=== PATIENT | male | born 1945 | race Caucasian/White ===

== ENCOUNTER → 2019-09-26 11:04 | Outpatient (BNVA) | payer OTHER, SELFPAY | PROVIDERS: Family Provider Internal Medicine; Referring Provider Internal Medicine; Visit Provider Specialist | DX: M19.012 Primary osteoarthritis, left shoulder (principal) | CPT/HCPCS: 73030 ==

== ENCOUNTER 2020-03-21 05:34 | Observation (INO) | payer OTHER, SELFPAY ==
[2020-03-21] VITALS (13 sets, daily range): BP systolic 117–147; BP diastolic 58–74; PULSE 51–78; RESP 13–22; TEMP 35.8–37; O2SAT 95–98; BMI 30.1
--- NOTE | 2020-03-21 05:42 | XRR_ITS ---
PROCEDURE INFORMATION: Exam: XR Chest, 1 View Exam date and time: 03/21/2020 6:04 AM Age: 74 years old Clinical indication: Chest pain; Type not specified TECHNIQUE: Imaging protocol: XR of the chest Views: 1 view. COMPARISON: CR Chest 1 [place] [id number] 09/17/2018 5:16 PM FINDINGS: Lungs: No lung consolidation or pulmonary edema. Pleural space: No pleural effusion or pneumothorax. Heart/Mediastinum: The cardiac silhouette is not enlarged. The mediastinal contours are normal. Bones/joints: There are multilevel bridging osteophytes in the spine. XR/XR chest 1V portable [id number] IMPRESSION: No acute abnormality.
--- NOTE | 2020-03-21 05:43 | ECG_ITS ---
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 Measurements Intervals [place] Rate: 56 P: 60 WV: 176 QRS: 32 QRSD: 89 T: 76 QT: 433 QTc: 420 Interpretive Statements SINUS BRADYCARDIA Compared to ECG 09/17/2018 17:01:59 Sinus rhythm no longer present Electronically Signed On 03-21-2020 13:55:23 CDT by Chapis Lopez M.D. [id number]
[2020-03-21] MEDS: nitroglycerin 0.4 mg sublingual Tablet SUBLINGUAL ×3 (05:47→06:10)
--- NOTE | 2020-03-21 05:47 | ED_ITS ---
Documented by User: Amanda Schultz 03/21/20 05:52 HPI - Chest Pain General: Chief Complaint: Chest Pain Stated Complaint: chest pains Time Seen by Provider: 03/21/20 05:41 Source: patient and family Mode of arrival: ambulatory Limitations: no limitations History of Present Illness: HPI narrative: Mr. Hung is a very nice 74-year-old male comes in complaining of chest pain. States his pain started about 10:00 last night. He describes it as a hurt that is in the center of his chest and radiates down his left arm. He has associated shortness of breath. He had similar symptoms approximately 1 month ago and at that time he had diaphoresis. Patient states that he took nitroglycerin at home which helped his symptoms but did not completely resolve them. She still complains of left arm discomfort here. He is not report any nausea or vomiting or syncope or near syncope. Patient states he otherwise has no complaints but he still having left arm discomfort at this time. He does have a history of coronary artery disease and has had a heart attack in the past. Patient states he also took a full- strength aspirin at home prior to coming in. Associated symptoms: Reports dyspnea; Deny abdominal pain, diaphoresis, fever(s), nausea, palpitations, syncope or vomiting Review of Systems Const: Denies: fever(s), chills, body aches, fatigue, malaise or diaphoresis Eyes: Denies: change in vision, blurry vision, photophobia, eye discomfort, eye discharge, eye redness or yellow eyes ENMT: Denies: throat pain, odynophagia, hoarseness, swelling of lips/tongue, ear or mastoid pain, ear discharge, change in hearing or nasal discharge Card: Reports: chest pain; Denies: palpitations, irregular heart rhythm, edema, lightheadedness, syncope, pre-syncope, dyspnea on exertion or orthopnea Resp: Reports: dyspnea; Denies: productive cough, non-productive cough, wheezing, hemoptysis or chest c ongestion GI: Denies: abdominal pain, nausea, vomiting, hematemesis, coffee ground emesis, heartburn, diarrhea, constipation, GI cramping, hematochezia or melena : Denies: flank pain, dysuria, urinary frequency, urinary urgency or hematuria Musc: Denies: neck pain, back pain, extremity pain, extremity swelling, joint pain, joint swelling, joint redness, joint warmth or joint stiffness Skin/Breast: Denies: rash, pruritus, erythema, skin pain or skin tenderness Neuro: Denies: headache(s), numbness in extremities, weakness in extremities, sensory changes, lack of coordination, difficulty walking, dizziness, vertigo, confusion, Slurred speech present or seizure-like activity Remi/Lymph: Denies: easy bruising, easy bleeding, petechiae, purpura or enlarged lymph nodes All/Imm: Denies: urticaria, throat swelling, tongue swelling, facial swelling or acute wheezing PFSH ED PFSH: Medical History (Updated 03/24/20 @ 17:21 by Grzegorz Lee DO) Atherosclerotic heart disease of [place] coronary artery without angina pectoris Benign essential HTN Dyslipidemia History of coronary angiogram 2017 Hypertension Type 2 diabetes mellitus Surgical History History of back surgery History of hernia repair History of shoulder surgery Family History (Updated 03/21/20 @ 10:56 by Tamara Wilson DO) Father CAD (coronary artery disease) Mother , No history of heart disease, diabetes or stroke No problems noted. Social History (Updated 03/21/20 @ 10:56 by Tamara Wilson DO) Smoking and tobacco status: former smoker Alcohol intake: never Physical Exam Const: COMMON NORMALS: no acute distress, patient oriented x3, no limitations and alert GENERAL APPEARANCE: cooperative HENMT: COMMON NORMALS: normocephalic, atraumatic, external ears normal, EAC's normal and Normal external nose present HEAD & SCALP: normal to inspection, normocephalic and atraumatic FACE & SINUS: normal facial exam and face symmetric NOSE: Normal external nose present and Normal nares present EXTERNAL EAR: Yes external ears normal EXTERNAL AUDITORY CANAL: EAC's normal MOUTH: Normal oral and palatal mucosa present, lip normal and tongue normal Eye: COMMON NORMALS: Equal, round and reactive pupils present and conjunctivae normal GENERAL EYE: appearance normal, both eyes and all related structures ALIGNMENT: Yes alignment normal PERIORBITAL: periorbital findings normal EYELID: eyelids normal CONJUNCTIVA: Yes conjunctivae normal SCLERA: sclerae normal PUPIL: Yes Equal, round and reactive pupils present Neck/C-Spine: COMMON NORMALS: full ROM, no lymphadenopathy, supple, no meningeal signs and no JVD GENERAL: Yes normal visual inspection and Yes trachea midline Chest: COMMONS NORMALS: normal inspection of the chest and normal palpation of entire chest wall Resp: COMMON NORMALS: normal respiratory effort, No retractions, No use of accessory muscles and clear to auscultation bilaterally EFFORT & INSPECTION: Yes able to speak in complete sentences and Yes symmetric chest movement AUSCULTATION: clear to auscultation bilaterally, no crackles, no rales, no rhonchi and no wheezes Cardio: COMMON NORMALS: no JVD, regular rate, regular rhythm, S1 normal heart sound present and S2 normal heart sound present RATE: regular rate RHYTHM: regular rhythm HEART SOUNDS: S1 normal heart sound present, S2 normal heart sound present, no click, no gallops, no murmurs and no rubs GI: COMMON NORMALS: Soft to palpation and No hepatosplenomegaly present PALPATION: Yes Soft to palpation, No Tenderness to palpation present (GI), No Guarding due to palpation present (GI), No Rigid due to palpation, Yes No hepatosplenomegaly present, No Hernia present, No Palpable mass present and No Pulsatile mass present : COMMON NORMALS: Yes no CVA tenderness BLADDER/KIDNEY EXAM: Yes no CVA tenderness Back/Pelvis: COMMON NORMALS: no CVA tenderness, thoracic and lumbar spine normal to inspection, no thoracic nor lumbar tenderness and thoraco-lumbar ROM normal Extremity: COMMON NORMALS: normal to inspection, full ROM, capillary refill normal, no joint enlargement, no clubbing, cyanosis or edema and no calf tenderness Neuro: COMMON NORMALS: patient oriented x3, CN's II-XII intact bilaterally, moves all extremities, no focal motor deficits and no sensory deficits noted SENSORIUM/ORIENTATION: Yes alert MENINGEAL SIGNS: Yes no meningeal signs SPEECH: speech normal Psych: COMMON NORMALS: mental status grossly normal, Normal thought process present, cooperative, normal affect, speech normal and activity/motor behavior normal SPEECH: Yes normal speech THOUGHT PROCESS: Normal thought process present Skin: COMMON NORMALS: no rashes or lesions noted, turgor normal, no jaundice, no petechiae and no mottling GENERAL SKIN EXAM: no rashes or lesions noted and turgor normal Course Vital Signs: Vital signs: Vital Signs Temperature 98.2 F 09/24/20 15:12 Pulse Rate 66 03/22/20 15:12 Respiratory Rate 22 H 03/22/20 15:12 Blood Pressure 110/63 03/22/20 15:12 Pulse Oximetry 97 03/22/20 15:12 MDM - Chest Pain Lab Data: Labs: Lab Results 03/21/20 03/21/20 03/21/20 Range/Units 05:50 05:50 05:50 WBC 5.1 (4.0-10.0) 10^3/ uL RBC 4.73 (4.1-5.3) 10^6/u L Hgb 15.7 (11.7-16.6) g/dL Hct 45.9 (42.0-52.0) % MCV 97.0 H (80-94) fL MCH 33.2 (28.0-34.0) pg MCHC 34.2 (30.0-36.0) g/dL RDW 12.7 (12.1-15.1) % Plt Count 171 (130-400) 10^3/c mm MPV 10.4 (7.4-10.4) fL Neut % (Auto) 51.5 % Lymph % (Auto) 34.1 % [place] % (Auto) 12.0 % Eos % (Auto) 1.8 % Baso % (Auto) 0.4 % Neut # (Auto) 2.61 (1.8-7.7) 10^3/u L Lymph # (Auto) 1.7 (0.8-4.8) 10^3/u L [place] # (Auto) 0.6 (0.2-0.9) 10^3/u L Eos # (Auto) 0.1 (0.0-0.8) 10^3/u L Baso # (Auto) 0.0 (0.0-0.1) 10^3/u L Nucleated RBC % (a uto) 0 % Nucleated RBCs # 0.0 /100WBC PT 12.10 (12.1-14.9) SECO NDS INR 0.87 (0.8-1.2) Sodium 140 (136-145) mmol/L Potassium 4.3 (3.5-5.1) mmol/L Chloride 104 (98-107) mmol/L Carbon Dioxide 24 (22-29) mmol/L Anion Gap 16.3 (5-19) BUN 23 (8-23) mg/dL Creatinine 1.2 (0.7-1.2) mg/dL GFR Calculation Not Reportable Glucose 129 H (65-115) mg/dL Calculated Osmolal ity 295 (285-295) mOsm/k g Calcium 10.5 (8.5-10.5) mg/dL Magnesium 1.9 (1.7-2.3) mg/dL Total Bilirubin 0.8 (0.15-1.2) mg/dL AST 26 (0-40) U/L ALT 37 (0-41) U/L Alkaline Phosphata se 76 (40-130) IU/L Troponin T Baselin e (0-15) ng/L Total Protein 7.0 (6.6-8.7) g/dL Albumin 4.8 (3.5-5.2) g/dL Globulin 2.2 (1.3-4.6) g/dL Lipase 52 (13-60) U/L 03/21/20 Range/Units 05:50 WBC (4.0-10.0) 10^3/ uL RBC (4.1-5.3) 10^6/u L Hgb (11.7-16.6) g/dL Hct (42.0-52.0) % MCV (80-94) fL MCH (28.0-34.0) pg MCHC (30.0-36.0) g/dL RDW (12.1-15.1) % Plt Count (130-400) 10^3/c mm MPV (7.4-10.4) fL Neut % (Auto) % Lymph % (Auto) % [place] % (Auto) % Eos % (Auto) % Baso % (Auto) % Neut # (Auto) (1.8-7.7) 10^3/u L Lymph # (Auto) (0.8-4.8) 10^3/u L [place] # (Auto) (0.2-0.9) 10^3/u L Eos # (Auto) (0.0-0.8) 10^3/u L Baso # (Auto) (0.0-0.1) 10^3/u L Nucleated RBC % (a uto) % Nucleated RBCs # /100WBC PT (12.1-14.9) SECO NDS INR (0.8-1.2) Sodium (136-145) mmol/L Potassium (3.5-5.1) mmol/L Chloride (98-107) mmol/L Carbon Dioxide (22-29) mmol/L Anion Gap (5-19) BUN (8-23) mg/dL Creatinine (0.7-1.2) mg/dL GFR Calculation Glucose (65-115) mg/dL Calculated Osmolal ity (285-295) mOsm/k g Calcium (8.5-10.5) mg/dL Magnesium (1.7-2.3) mg/dL Total Bilirubin (0.15-1.2) mg/dL AST (0-40) U/L ALT (0-41) U/L Alkaline Phosphata se (40-130) IU/L Troponin T Baselin e 9 (0-15) ng/L Total Protein (6.6-8.7) g/dL Albumin (3.5-5.2) g/dL Globulin (1.3-4.6) g/dL Lipase (13-60) U/L EKG Data^: EKG 1: Attestation: I personally reviewed and interpreted this EKG as follows: EKG interpretation date: 03/21/20 EKG interpretation time: 05:44 Interpretation: Normal sinus rhythm at 56 beats a minute, nonspecific T wave change in aVL and V3, normal axis, no blocks, normal intervals, no other acute findings. Discharge Plan Discharge Patient Disposition: Admitted As Inpatient Admit Provider: Lon Tabor Clinical Impression: Chest pain, Atherosclerotic heart disease of [place] coronary artery without angina pectoris, Benign essential HTN, Dyslipidemia Condition: Stable Referrals: Naldo Jarquin MD [Physician] - 2 weeks (Please keep your appointment you already have with Dr. Jarquin at [facility] on April 05 at 3:15pm) Aziza Marsh MD [Primary Care Provider] - (You have a hospital followup with Dr. Marsh at [facility] on April 03 at 11:00am) Discharge Diet: Cardiac Discharge Activity: Increase activity as tolerated Patient Instructions: Aspirin (By mouth), Chest Pain (GEN), Chest Pain Stoplight Additional Instructions: Continue on home medications including atorvastatin, Imdur, metoprolol, nif edipine, started on aspirin 81 mg daily. Stress test performed in the hospital showed no evidence of any obstructive blood flow. Continue with close cardiology follow-up as scheduled on 04/05/[address] Jarquin Follow-up with primary care provider at the [facility] in 5 to 7 days Call your physician or present to the ED for any acute illness or concern Interventions: ED Discharge Assessment Last Done: 03/21/20 07:25 ED Charges Last Done: 03/21/20 07:25 Discharge Date/Time: 03/21/20 08:35 Sign Out Sign Out Data: Patient Sign Out occurred on 03/21/20 at 06:18. Patient's care was discussed, and care was transferred from to Grzegorz Lee DO. Coding Level of Care Code ED Market Development Trainer for Chg Fwd Exam Comprehensive Documented by User: Grzegorz Lee DO 03/24/20 17:22 HPI - Chest Pain General: Chief Complaint: Chest Pain Stated Complaint: chest pains Time Seen by Provider: 03/21/20 05:41 [facility] ED PFSH: Medical History (Updated 03/24/20 @ 17:21 by Grzegorz Lee DO) Atherosclerotic heart disease of [place] coronary artery without angina pectoris Benign essential HTN Dyslipidemia History of coronary angiogram 2017 Hypertension Type 2 diabetes mellitus Surgical History History of back surgery History of hernia repair History of shoulder surgery Family History (Updated 03/21/20 @ 10:56 by Tamara Wilson DO) Father CAD (coronary artery disease) Mother , No history of heart disease, diabetes or stroke No problems noted. Social History (Updated 03/21/20 @ 10:56 by Tamara Wilson DO) Smoking and tobacco status: former smoker Alcohol intake: never Course Vital Signs: Vital signs: Vital Signs Temperature 98.2 F 03/22/20 15:12 Pulse Rate 66 03/22/20 15:12 Respiratory Rate 22 H 03/22/20 15:12 Blood Pressure 110/63 03/22/20 15:12 Pulse Oximetry 97 03/22/20 15:12 MDM - Chest Pain MDM Narrative: Medical decision making narrative: Observation for atypical chest pain. Discussed Dr. Wilson orders have been written patient needs further evaluation given heart score and history of previous known coronary disease. Lab Data: Labs: Lab Results 03/21/20 03/21/20 03/21/20 Range/Units 05:50 05:50 05:50 WBC 5.1 (4.0-10.0) 10^3/ uL RBC 4.73 (4.1-5.3) 10^6/u L Hgb 15.7 (11.7-16.6) g/dL Hct 45.9 (42.0-52.0) % MCV 97.0 H (80-94) fL MCH 33.2 (28.0-34.0) pg MCHC 34.2 (30.0-36.0) g/dL RDW 12.7 (12.1-15.1) % Plt Count 171 (130-400) 10^3/c mm MPV 10.4 (7.4-10.4) fL Neut % (Auto) 51.5 % Lymph % (Auto) 34.1 % [place] % (Auto) 12.0 % Eos % (Auto) 1.8 % Baso % (Auto) 0.4 % Neut # (Auto) 2.61 (1.8-7.7) 10^3/u L Lymph # (Auto) 1.7 (0.8-4.8) 10^3/u L [place] # (Auto) 0.6 (0.2-0.9) 10^3/u L Eos # (Auto) 0.1 (0.0-0.8) 10^3/u L Baso # (Auto) 0.0 (0.0-0.1) 10^3/u L Nucleated RBC % (a uto) 0 % Nucleated RBCs # 0.0 /100WBC PT 12.10 (12.1-14.9) SECO NDS INR 0.87 (0.8-1.2) Sodium 140 (136-145) mmol/L Potassium 4.3 (3.5-5.1) mmol/L Chloride 104 (98-107) mmol/L Carbon Dioxide 24 (22-29) mmol/L Anion Gap 16.3 (5-19) BUN 23 (8-23) mg/dL Creatinine 1.2 (0.7-1.2) mg/dL GFR Calculation Not Reportable Glucose 129 H (65-115) mg/dL Calculated Osmolal ity 295 (285-295) mOsm/k g Calcium 10.5 (8.5-10.5) mg/dL Magnesium 1.9 (1.7-2.3) mg/dL Total Bilirubin 0.8 (0.15-1.2) mg/dL AST 26 (0-40) U/L ALT 37 (0-41) U/L Alkaline Phosphata se 76 (40-130) IU/L Troponin T Baselin e (0-15) ng/L Total Protein 7.0 (6.6-8.7) g/dL Albumin 4.8 (3.5-5.2) g/dL Globulin 2.2 (1.3-4.6) g/dL Lipase 52 (13-60) U/L 03/21/20 Range/Units 05:50 WBC (4.0-10.0) 10^3/ uL RBC (4.1-5.3) 10^6/u L Hgb (11.7-16.6) g/dL Hct (42.0-52.0) % MCV (80-94) fL MCH (28.0-34.0) pg MCHC (30.0-36.0) g/dL RDW (12.1-15.1) % Plt Count (130-400) 10^3/c mm MPV (7.4-10.4) fL Neut % (Auto) % Lymph % (Auto) % [place] % (Auto) % Eos % (Auto) % Baso % (Auto) % Neut # (Auto) (1.8-7.7) 10^3/u L Lymph # (Auto) (0.8-4.8) 10^3/u L [place] # (Auto) (0.2-0.9) 10^3/u L Eos # (Auto) (0.0-0.8) 10^3/u L Baso # (Auto) (0.0-0.1) 10^3/u L Nucleated RBC % (a uto) % Nucleated RBCs # /100WBC PT (12.1-14.9) SECO NDS INR (0.8-1.2) Sodium (136-145) mmol/L Potassium (3.5-5.1) mmol/L Chloride (98-107) mmol/L Carbon Dioxide (22-29) mmol/L Anion Gap (5-19) BUN (8-23) mg/dL Creatinine (0.7-1.2) mg/dL GFR Calculation Glucose (65-115) mg/dL Calculated Osmolal ity (285-295) mOsm/k g Calcium (8.5-10.5) mg/dL Magnesium (1.7-2.3) mg/dL Total Bilirubin (0.15-1.2) mg/dL AST (0-40) U/L ALT (0-41) U/L Alkaline Phosphata se (40-130) IU/L Troponin T Baselin e 9 (0-15) ng/L Total Protein (6.6-8.7) g/dL Albumin (3.5-5.2) g/dL Globulin (1.3-4.6) g/dL Lipase (13-60) U/L Discharge Plan Discharge Patient Disposition: Admitted As Inpatient Admit Provider: Lon Tabor Clinical Impression: Chest pain, Atherosclerotic heart disease of [place] coronary artery without angina pectoris, Benign essential HTN, Dyslipidemia Condition: Stable Referrals: Naldo Jarquin MD [Physician] - 2 weeks (Please keep your appointment you already have with Dr. Jarquin at [facility] on April 05 at 3:15pm) Aziza Marsh MD [Primary Care Provider] - (You have a hospital followup with Dr. Marsh at [facility] on April 03 at 11:00am) Discharge Diet: Cardiac Discharge Activity: Increase activity as tolerated Patient Instructions: Aspirin (By mouth), Chest Pain (GEN), Chest Pain Stoplight Additional Instructions: Continue on home medications including atorvastatin, Imdur, metoprolol, nifedipine, started on aspirin 81 mg daily. Stress test performed in the hospital showed no evidence of any obstructive blood flow. Continue with close cardiology follow-up as scheduled on 04/05/[address] Jarquin Follow-up with primary care provider at the [place] in 5 to 7 days Call your physician or present to the ED for any acute illness or concern Interventions: ED Discharge Assessment Last Done: 03/21/20 07:25 ED Charges Last Done: 03/21/20 07:25 Discharge Date/Time: 03/21/20 08:35 Sign Out Sign Out Data: Patient Sign Out occurred on 03/21/20 at 06:18. Patient's care was discussed, and care was transferred from to Grzegorz Lee DO. Coding Level of Care Code ED Market Development Trainer for [employer] Fwd Exam Comprehensive
[2020-03-21 06:07] LABS: Basophils % 0.4 %; Eosinophils # 0.1 10^3/uL (0.0-0.8); Eosinophils % 1.8 %; Hematocrit 45.9 % (42.0-52.0); Hemoglobin 15.7 g/dL (11.7-16.6); Lymphocytes # 1.7 10^3/uL (0.8-4.8); Lymphocytes % 34.1 %; Mean Corpuscular HGB Conc 34.2 g/dL (30.0-36.0); Mean Corpuscular Hemoglobin 33.2 pg (28.0-34.0); Mean Platelet Volume 10.4 fL (7.4-10.4); Monocytes # 0.6 10^3/uL (0.2-0.9); Neutrophils # 2.61 10^3/uL (1.8-7.7); Neutrophils % 51.5 %; Nucleated Red Blood Cells % 0 %; Platelet Count 171 10^3/cmm (130-400); Red Blood Count 4.73 10^6/uL (4.1-5.3); Red Cell Distribution Width 12.7 % (12.1-15.1); White Blood Count 5.1 10^3/uL (4.0-10.0)
[2020-03-21 06:14] LABS: INR 0.87 (0.8-1.2)
[2020-03-21 06:19] LABS: Alanine Aminotransferase 37 U/L (0-41); Albumin Level 4.8 g/dL (3.5-5.2); Alkaline Phosphatase 76 IU/L (40-130); Anion Gap 16.3 (5-19); Aspartate Amino Transferase 26 U/L (0-40); Blood Urea Nitrogen 23 mg/dL (8-23); Calcium 10.5 mg/dL (8.5-10.5); Carbon Dioxide 24 mmol/L (22-29); Chloride 104 mmol/L (98-107); Creatinine Clr Calc Pharmacy 63.5117; Globulin 2.2 g/dL (1.3-4.6); Glucose 129 mg/dL (65-115); Lipase 52 U/L (13-60); Magnesium 1.9 mg/dL (1.7-2.3); Osmolality Calculated 295 mOsm/kg (285-295); Potassium 4.3 mmol/L (3.5-5.1); Sodium 140 mmol/L (136-145); Total Bilirubin 0.8 mg/dL (0.15-1.2)
[2020-03-21 06:22] LABS: Troponin(5th) Baseline 9 ng/L (0-15)
[2020-03-21] MEDS: nitroglycerin 1 gm/inch oint Pkt 1 INCH TOPICAL (06:30)
[2020-03-21] MEDS: enoxaparin 100 mg/mL Syringe SUBCUT (06:52)
--- NOTE | 2020-03-21 07:43 | ECG_ITS ---
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 Measurements Intervals [place] Rate: 52 P: 56 [place]: 180 QRS: 24 QRSD: 88 T: 67 QT: 445 QTc: 417 Interpretive Statements SINUS BRADYCARDIA Compared to ECG 03/21/2020 05:44:28 No significant changes Electronically Signed On 03-21-2020 13:57:28 CDT by Chapis Lopez M.D. [id number]
[2020-03-21 09:17] LABS: Glucose Point of Care 128 mg/dL (70-110)
--- NOTE | 2020-03-21 09:46 | ECG_ITS ---
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 Interpretive Statements NAME OF STUDY: LEXISCAN SESTAMIBI STRESS TEST INDICATION: Chest Pain PROCEDURE: At the baseline, the blood pressure was 154/67 mmHg with a heart rate of 73 bpm. The electrocardiogram showed sinus rhythm with frequent isolated PVCs. Mild nonspecific ST depression in inferolateral leads. The Lexiscan was infused over a period of 20 seconds. A total of 0.4 milligrams of Lexiscan was infused. The stress phase was continued for a total of 5 minutes. Heart rate at the end of the stress phase was 101 bpm with a blood pressure 159/47 mmHg. The EKG at the peak infusion revealed sinus tachycardia at 101 bpm with isolated PACs. No significant ST-T wave changes. Sestamibi was injected 20 seconds after the Lexiscan infusion. Study was terminated due to protocol completion. Blood pressure at the end of the recovery phase was 146/64 mmHg with a heart rate of 96 beats per minute. CONCLUSION: 1. No significant EKG changes with the LexiScan infusion. 2. No LexiScan induced chest pain or cardiac arrhythmia. 3. Normal blood pressure and heart rate response. 4. Sestamibi/sestamibi perfusion scan pending; see separate report. Electronically Signed On 03-22-2020 13:12:30 CDT by Chapis Lopez M.D. [id number]
[2020-03-21 09:52] LABS: Troponin 5 2HR 8.49 ng/L (0-15)
[2020-03-21 10:07] LABS: Troponin 5 2HR Delta -0.51 ABS# (0-10)
--- NOTE | 2020-03-21 10:52 | P.HP_ITS ---
Providers/Chief Complaint Admitting Physician: Tamara Wilson DO Primary Care Provider: Mansoor Castro Chief Complaint: chest pains History of Present Illness Beka Hung is a 74 year old male Review of Systems Const: Denies: fever(s) or chills Eyes: Denies: change in vision ENMT: Denies: nasal congestion Card: Reports: chest pain; Denies: palpitations or edema Resp: Denies: dyspnea, productive cough or hemoptysis GI: Denies: abdominal pain, nausea, vomiting, diarrhea, constipation, hematochezia or melena : Denies: dysuria or hematuria Musc: Denies: extremity pain or muscle cramps Skin/Breast: Denies: rash or new lesions Neuro: Denies: headache(s) or dizziness Psych: Denies: anxiety or depression Endo: Denies: polyuria or hot flashes Remi/Lymph: Denies: easy bruising or easy bleeding Medications/Allergies Home Medications Medication Instructions Recorded Confirmed Last Taken Type atorvastatin 40 mg tablet 40 mg PO DAILY 12/04/19 03/21/20 03/20/20 History empagliflozin 25 mg tablet 25 mg PO DAILY 12/04/19 03/21/20 03/20/20 History finasteride 5 mg tablet 5 mg PO DAILY 12/04/19 03/21/20 03/20/20 History isosorbide mononitrate 120 mg 120 mg PO DAILY 12/04/19 03/21/20 03/20/20 History tablet,extended release 24 hr metformin 500 mg tablet 500 mg PO BID 12/04/19 03/21/20 03/20/20 History metoprolol tartrate 50 mg tablet 50 mg PO DAILY 12/04/19 03/21/20 03/20/20 History nifedipine 30 mg tablet,extended 30 mg PO DAILY 12/04/19 03/21/20 03/20/20 History release pantoprazole 40 mg tablet,delayed 40 mg PO DAILY 12/04/19 03/21/20 03/20/20 History release tamsulosin 0.4 mg capsule 0.4 mg PO DAILY 12/04/19 03/21/20 03/20/20 History valsartan 160 mg tablet 160 mg PO DAILY 12/04/19 03/21/20 03/20/20 History nitroglycerin [Nitrostat] 0.4 mg SUBLINGUAL Q5M PRN 03/21/20 03/21/20 Unknown History Allergies Allergy/AdvReac Type Severity Reaction Status Date / Time codeine Allergy Severe ALGY-Anaphy Verified 12/04/19 10:06 laxis ropinirole Allergy Intermediate ADR-Confusi Verified 12/04/19 10:06 on sulfamethoxazole Allergy Mild sweating Verified 12/04/19 10:06 [From Bactrim] trimethoprim [From Bactrim] Allergy Mild sweating Verified 12/04/19 10:06 morphine Allergy ADR/ALGY-Pa Verified 12/04/19 10:06 lpitations propoxyphene [From Darvon] Allergy ALGY-Difficulty Verified 12/04/19 10:06 Breathing PFSH Acute PFSH: Medical History (Updated 03/21/20 @ 10:55 by Tamara Wilson DO) Atherosclerotic heart disease of [place] coronary artery without angina pectoris Benign essential HTN Dyslipidemia History of coronary angiogram 2016 Hypertension Type 2 diabetes mellitus Surgical History History of back surgery History of hernia repair History of shoulder surgery Family History (Updated 03/21/20 @ 10:56 by Tamara Wilson DO) Father CAD (coronary artery disease) Mother , No history of heart disease, diabetes or stroke No problems noted. Social History (Updated 03/21/20 @ 10:56 by Tamara Wilson DO) Smoking and tobacco status: former smoker Alcohol intake: never Substance/Drug Use: never Supplemental PFSH Information: Previously smoked a pipe, quit smoking couple of years ago Ambulates with a cane Vitals/I&O/Wt Last Vital Signs Temp 97.8 F 03/21/20 10:47 Pulse 56 L 03/21/20 10:47 Resp 13 03/21/20 10:47 BP 125/58 03/21/20 10:47 Pulse Ox 97 03/21/20 10:47 03/20/20 03/21/20 03/21/20 22:59 06:59 14:59 Intake Total 240 / 240 Balance 240 / 240 Weight last 48 hrs Weight 95.254 kg Physical Exam Const: COMMON NORMALS: patient oriented x3 and alert GENERAL APPEARANCE: cooperative ORIENTATION/CONSCIOUSNESS: Yes awake, Yes oriented to person, Yes oriented to place and Yes oriented to time HENMT: COMMON NORMALS: normocephalic and atraumatic HEAD & SCALP: normocephalic and atraumatic Eye: COMMON NORMALS: Equal, round and reactive pupils present PUPIL: Yes Equal, round and reactive pupils present Neck/C-Spine: COMMON NORMALS: supple GENERAL: Yes normal visual inspection Resp: COMMON NORMALS: normal respiratory effort and clear to auscultation bilaterally EFFORT & INSPECTION: Yes able to speak in complete sentences AUSCULTATION: clear to auscultation bilaterally, no rhonchi and no wheezes Cardio: COMMON NORMALS: regular rate, regular rhythm and No murmurs present (Cardio) RATE: regular rate RHYTHM: regular rhythm GI: COMMON NORMALS: Soft to palpation and non-tender INSPECTION: No abdomin al distension AUSCULTATION: Yes normoactive bowel sounds PALPATION: Yes Soft to palpation : COMMON NORMALS: Yes no CVA tenderness BLADDER/KIDNEY EXAM: Yes no CVA tenderness Back/Pelvis: COMMON NORMALS: no CVA tenderness Extremity: COMMON NORMALS: no clubbing, cyanosis or edema and no calf tenderness Neuro: COMMON NORMALS: patient oriented x3, CN's II-XII intact bilaterally, moves all extremities and no focal motor deficits SENSORIUM/ORIENTATION: Yes alert, Yes oriented to person, Yes oriented to place and Yes oriented to time SPEECH: speech normal Psych: COMMON NORMALS: mental status grossly normal and cooperative Skin: COMMON NORMALS: no rashes or lesions noted GENERAL SKIN EXAM: no rashes or lesions noted Data : 03/21/20 05:50 03/21/20 05:50 A&P Assessment and plan (1) Chest pain: Observation to CSU Telemetry monitoring Serial EKG and troponin Cardiac catheter in 2017 reviewed, diagnosed with non-ST elevation CT at that time but did not require intervention Patient had stress test in 2018 which showed no evidence of any ischemia. Discussed with patient's primary milk receiver as he has an appointment with him tomorrow. We will continue with plan for stress test tomorrow and further cardiac evaluation is indicated Status: Acute (2) Benign essential HTN: Continue home Imdur, nifedipine and valsartan Status: Acute (3) Atherosclerotic heart disease of [place] coronary artery without angina pectoris: Patient presents with chest pain today Further plan as above Status: Acute Qualifiers: [place] vs. transplanted heart: [place] heart Qualified Code(s): I25.10 - Atherosclerotic heart disease of [place] coronary artery without angina pectoris (4) Dyslipidemia: Continue atorvastatin Status: Acute Additional A&P Information Diabetes: Hold metformin, placed on low-dose sliding scale insulin as needed Prior history of tobacco abuse BPH: Continue home Flomax and finasteride Hyperlipidemia: Continue atorvastatin DVT prophylaxis: Lovenox Diet: Cardiac diet, n.p.o. at midnight CODE STATUS: Full code Attestations Medical Necessity Statement*: Observation placement due to concern for chest pain, expected stay less than 2 midnights Coding Level of Care Code Acute Car Tester for Carag Fwd Diagnoses Chest pain R07.9 Benign essential HTN I10 Atherosclerotic heart disease of [place] coronary artery without angina pectoris I25.10 [place] vs. transplanted heart: [place] heart Dyslipidemia E78.5
[2020-03-21 11:18] LABS: Glucose Point of Care 130 mg/dL (70-110)
--- NOTE | 2020-03-21 11:43 | ECG_ITS ---
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 Measurements Intervals [place] Rate: 61 P: 52 [place]: 177 QRS: 46 QRSD: 86 T: 72 QT: 415 QTc: 418 Interpretive Statements SINUS RHYTHM Compared to ECG 03/21/2020 07:53:44 Sinus bradycardia no longer present Electronically Signed On 03-21-2020 13:57:09 CDT by Chapis Lopez M.D. [id number]
[2020-03-21] MEDS: atorvastatin 40 mg Tablet PO (11:51)
[2020-03-21] MEDS: tamsulosin 0.4 mg Capsule PO (11:51)
[2020-03-21] MEDS: pantoprazole DR 40 mg Tablet PO (11:52)
--- NOTE | 2020-03-21 11:52 | PC.CHAP ---
Pastoral Care Encounter/Spiritual Assessment Type of Contact [] Declined quality control engineer visit [] Patient/Family/Request visit [] Outpatient visit [] Follow-up visit [] Physician referral [] Code/Alert [X] Routine visit [] Staff referral [] Actively dying [] Patient sleeping [] Family support [] [] Out of room [] Palliative care [] [] Receiving care in room [] Pre-surgical visit [] Trauma [] Long length of stay [] ICU visit [] Other: Relational/Emotional Strength [] Patient feels connected with others/family/visitors/staff [] Distress [] Loneliness/isolation [] Abandonment Spirituality of Patient [] Person of Stacie [] Attends Restorationist of their Stacie [] Believes in Prayer [] Reads Bible or Baptism materials [] There are Spiritual issues to be addressed Picker Box Operator Interventions [] Prayer [] Active listening [] Non-anxious presence [] Spiritual/emotional support [] Crisis/trauma care [] Spiritual counseling [] Bereavement support [] Provided bereavement packet [] Provided Bible/devotional materials [] Provided toy/stuffed animal, coloring book to patient or family member [] Provided Communion [] Anointing/[place] [] Salvation [] Completed spiritual assessment [] Other: Impact on Illness or Injury [] Angry [] Fearful [] Anxious [] Often cries [] Exhaustion [] Unable to work [] Unable to attend mu-ism [] Unable to walk/stand [] Unable to read [] Unable to drive [] Unable to eat/drink [] Unable to sleep [] Unable to be with family [] Patient intubated [] Other: Summary Time spent with patient
[2020-03-21 12:23] LABS: Troponin 5 6HR 7.92 ng/L (0-15)
[2020-03-21 12:43] LABS: Troponin 5 6HR Delta -1.08 ng/L (0-12)
[2020-03-21 16:03] LABS: Glucose Point of Care 113 mg/dL (70-110)
[2020-03-21] MEDS: docusate sodium 100 mg Capsule PO (19:03)
[2020-03-21 20:47] LABS: Glucose Point of Care 112 mg/dL (70-110)
[2020-03-22] VITALS (8 sets, daily range): BP systolic 110–152; BP diastolic 56–70; PULSE 66–98; RESP 15–22; TEMP 36.6–36.8; O2SAT 94–98
--- NOTE | 2020-03-22 04:34 | PC.NURSE ---
End of shift: Patient has had a uneventful shift. Patient has been NPO for pending lexiscan. Patient has had no complaints of pain. Will continue to monitor.
[2020-03-22 05:08] LABS: Basophils % 0.3 %; Eosinophils # 0.1 10^3/uL (0.0-0.8); Eosinophils % 0.7 %; Hematocrit 45.5 % (42.0-52.0); Hemoglobin 15.2 g/dL (11.7-16.6); Lymphocytes # 1.2 10^3/uL (0.8-4.8); Lymphocytes % 17.6 %; Mean Corpuscular HGB Conc 33.4 g/dL (30.0-36.0); Mean Corpuscular Hemoglobin 32.5 pg (28.0-34.0); Mean Corpuscular Volume 97.2 fL (80-94); Mean Platelet Volume 10.7 fL (7.4-10.4); Monocytes # 0.7 10^3/uL (0.2-0.9); Monocytes % 9.7 %; Neutrophils # 4.92 10^3/uL (1.8-7.7); Neutrophils % 71.4 %; Nucleated Red Blood Cells % 0 %; Platelet Count 171 10^3/cmm (130-400); Red Blood Count 4.68 10^6/uL (4.1-5.3); Red Cell Distribution Width 12.7 % (12.1-15.1); White Blood Count 6.9 10^3/uL (4.0-10.0)
[2020-03-22 05:25] LABS: Anion Gap 13.4 (5-19); Blood Urea Nitrogen 27 mg/dL (8-23); Calcium 10.2 mg/dL (8.5-10.5); Carbon Dioxide 26 mmol/L (22-29); Chloride 105 mmol/L (98-107); Creatinine Clr Calc Pharmacy 69.2854; Glucose 129 mg/dL (65-115); Osmolality Calculated 297 mOsm/kg (285-295); Potassium 4.4 mmol/L (3.5-5.1); Sodium 140 mmol/L (136-145)
[2020-03-22 06:35] LABS: Glucose Point of Care 135 mg/dL (70-110)
--- NOTE | 2020-03-22 06:35 | PC.NURSE ---
Patient states he is claustrophobic and requesting something pre procedure. Called Dr. Tabor orders received for for Ativan 1mg IVP x1. Read back verbal order. Will continue to monitor.
[2020-03-22] MEDS: LORazepam 2 mg/mL INJ 1 mL 1 MG IVP (07:16)
[2020-03-22] MEDS: regadenoson 0.4 Mg/5 ml Syringe IVP (07:52)
[2020-03-22] MEDS: NIFEdipine ER (24 hr) 30 mg Tablet PO (09:29)
[2020-03-22] MEDS: metoprolol tartrate 50 mg Tablet PO (09:29)
[2020-03-22] MEDS: isosorbide mononitrate ER 60 mg Tablet 120 MG PO (09:29)
[2020-03-22] MEDS: tamsulosin 0.4 mg Capsule PO (09:29)
[2020-03-22] MEDS: pantoprazole DR 40 mg Tablet PO (09:31)
[2020-03-22] MEDS: finasteride 5 mg Tablet PO (09:31)
[2020-03-22] MEDS: enoxaparin 40 mg/0.4 mL Syringe SUBCUT (09:31)
[2020-03-22] MEDS: docusate sodium 100 mg Capsule PO (09:31)
--- NOTE | 2020-03-22 09:46 | NMCV_ITS ---
NM toby perf SPECT r/s* [id number] Beka Hung Age: 74 Gender: M : 1945 Exam Date: 03/22/2020 06:55 Ordering Phys: Tamara Wilson DO Technologist: MARTINEZ Muniz Exam Location: [facility] Indications: CHEST PAIN STRESS TEST Please see separate stress test report in [facility] for full findings IMAGE PROTOCOL Rest/Stress 1 Lexiscan Day Radiopharmaceutical Dose (mCi) Administration Site Administered by Rest: Tc-99m 11.0 IV MARTINEZ Barnes Sestamibi Stress:Tc-99m 33.0 IV MARTINEZ Barnes Sestamibi Rest: 22-Mar-2020 60 Discovery 630 Stress: 22-Mar-2020 30 Discovery 630 0.4mg Lexiscan. Images obtained in supine and prone position. SPECT RESULTS Technical Quality: Good Raw Data Analysis: Normal Image Corrections: No attenuation or motion correction applied Summed Stress Score: 2 Summed Rest Score: 0 Summed Difference Score: 2 PERFUSION FINDINGS Small size perfusion abnormality of mild severity of mid inferior and inferolateral [place] on supine stress images with improved tracer uptake on prone stress images. FUNCTIONAL RESULTS (calculated via Gated SPECT) Stress Image LV EF (%): 79 Stress EDV (mL):80 TID: 1.08 Stress ESV (mL):17 FUNCTIONAL FINDINGS: 1. The left ventricle is normal in size. Transient Ischemia Dilatation of 1.1. 2. The left ventricular ejection fraction is normal with a value of 79%. 3. There is hyperdynamic left ventricular wall thickening. 4. Normal end-diastolic and end-systolic volumes. IMPRESSIONS 1. Myocardial perfusion imaging is normal. Attenuation artifact noted in inferior wall. 2. Overall left ventricular systolic function is normal without regional wall motion abnormalities. 3. The left ventricular ejection fraction is normal with a value of 79%. 4. Scan indicates low risk for cardiac events. 5. When compared to previous study dated 12/28/2017, there may not have been any significant change Chapis Lopez MD (Electronically Signed) Final Date: 22 March 2020 13:20 S
--- NOTE | 2020-03-22 11:18 | PC.CHAP ---
Pastoral Care Encounter/Spiritual Assessment Type of Contact [] Declined reworker visit [] Patient/Family/Request visit [] Outpatient visit [] Follow-up visit [] Physician referral [] Code/Alert [x] Routine visit [] Staff referral [] Actively dying [] Patient sleeping [] Family support [] [] Out of room [] Palliative care [] [x] Receiving care in room [] Pre-surgical visit [] Trauma [] Long length of stay [] ICU visit [] Other: Relational/Emotional Strength [x] Patient feels connected with others/family/visitors/staff [] Distress [] Loneliness/isolation [] Abandonment Spirituality of Patient [x] Person of Stacie [] Attends Christian of their Stacie [x] Believes in Prayer [] Reads Bible or Hinduism materials [] There are Spiritual issues to be addressed Oracle Adf Developer Interventions [x] Prayer [x] Active listening [x] Non-anxious presence [x] Spiritual/emotional support [] Crisis/trauma care [x] Spiritual counseling [] Bereavement support [] Provided bereavement packet [] Provided Bible/devotional materials [] Provided toy/stuffed animal, coloring book to patient or family member [] Provided Communion [] Anointing/[place] [] Salvation [x] Completed spiritual assessment [] Other: Impact on Illness or Injury [] Angry [] Fearful [] Anxious [] Often cries [] Exhaustion [] Unable to work [] Unable to attend yazdanism [] Unable to walk/stand [] Unable to read [] Unable to drive [] Unable to eat/drink [] Unable to sleep [] Unable to be with family [] Patient intubated [] Other: Summary Dealing with heart doesn't know what needs to be done, waiting on doctors report has a good attitude Time spent with patient 10 mins
[2020-03-22 11:21] LABS: Glucose Point of Care 165 mg/dL (70-110)
--- NOTE | 2020-03-22 12:52 | PC.NURSE ---
Dr Wilson notified during rounding of patient reports he takes Lipitor and losartan at bedtime instructions to re-time medications to patient home schedule
--- NOTE | 2020-03-22 14:31 | PM.DCS ---
Discharge Providers Date of Admission: 03/21/20 06:50 Date of Discharge: March 22, 2020 Attending Provider at Admission: Lon Tabor MD Attending Provider at Discharge: Tamara Wilson DO Primary Care Provider: Mansoor Castro Diagnoses at Discharge Discharge Diagnosis (1) Chest pain: Status: Acute (2) Benign essential HTN: Status: Acute (3) Atherosclerotic heart disease of [place] coronary artery without angina pectoris: Status: Acute Qualifiers: [place] vs. transplanted heart: [place] heart Qualified Code(s): I25.10 - Atherosclerotic heart disease of [place] coronary artery without angina pectoris (4) Dyslipidemia: Status: Acute Reason for Visit Reason for Visit: chest pains Hospital Course Hospital Course: Patient seen and evaluated in the emergency department and admitted for further evaluation and treatment due to concern for chest pain. Patient was placed on telemetry and monitored for any acute EKG changes, none were noted. He had serial EKG and troponin performed, troponin did not have significant delta. Discussed with patient's primary triple valve tester, Dr. Jarquin. Patient had stress test ordered and performed, results showed low likelihood of any ischemia and showed no change compared to previous stress test. Patient remained symptom-free on date of discharge and reported that he often has night terrors and curious if his symptoms are related to anxiety. Discussed with him need for close outpatient follow-up. He verbalized understanding and agreed with plan. Physical Exam Const: COMMON NORMALS: patient oriented x3 and alert GENERAL APPEARANCE: cooperative ORIENTATION/CONSCIOUSNESS: Yes awake, Yes oriented to person, Yes oriented to place and Yes oriented to time HENMT: COMMON NORMALS: normocephalic and atraumatic HEAD & SCALP: normocephalic and atraumatic Eye: COMMON NORMALS: Equal, round and reactive pupils present PUPIL: Yes Equal, round and reactive pupils present Neck/C-Spine: COMMON NORMALS: supple GENERAL: Yes normal visual inspection Resp: COMMON NORMALS: normal respiratory effort and clear to auscultation bilaterally EFFORT & INSPECTION: Yes able to speak in complete sentences AUSCULTATION: clear to auscultation bilaterally, no rhonchi and no wheezes Cardio: COMMON NORMALS: regular rate, regular rhythm and No murmurs present (Cardio) RATE: regular rate RHYTHM: regular rhythm GI: COMMON NORMALS: Soft to palpation and non-tender INSPECTION: No abdominal distension AUSCULTATION: Yes normoactive bowel sounds PALPATION: Yes Soft to palpation Extremity: COMMON NORMALS: no clubbing, cyanosis or edema and no calf tenderness Neuro: COMMON NORMALS: patient oriented x3, CN's II-XII intact bilaterally, moves all extremities and no focal motor deficits SENSORIUM/ORIENTATION: Yes alert, Yes oriented to person, Yes oriented to place and Yes oriented to time SPEECH: speech normal Psych: COMMON NORMALS: mental status grossly normal and cooperative Skin: COMMON NORMALS: no rashes or lesions noted GENERAL SKIN EXAM: no rashes or lesions noted Discharge Data Data Completed and Pending: Completed Studies During Hospitalization Category Date Time Status Sestamibi Stress Test Request Routi ne Exams 03/21/20 09:46 Completed XR chest 1V roshni ble [id number] Stat Exams 03/21/20 05:42 Completed NM toby perf SPECT r/s* [id number] Routin e Nuc Med 03/22/20 09:46 Completed Labs from last 24 hours 03/22/20 03/22/20 03/22/20 11:04 06:22 04:00 WBC RBC Hgb Hct MCV MCH MCHC RDW Plt Count MPV Neut % (Auto) Lymph % (Auto) [place] % (Auto) Eos % (Auto) Baso % (Auto) Neut # (Auto) Lymph # (Auto) [place] # (Auto) Eos # (Auto) Baso # (Auto) Nucleated RBC % (a uto) Nucleated RBCs # Sodium 140 Potassium 4.4 Chloride 105 Carbon Dioxide 26 Anion Gap 13.4 BUN 27 H Creatinine 1.1 GFR Calculation Not Reportable Glucose 129 H POC Glucose 165 135 Calculated Osmolal ity 297 H Calcium 10.2 03/22/20 03/21/20 03/21/20 04:00 20:41 15:58 WBC 6.9 RBC 4.68 Hgb 15.2 Hct 45.5 MCV 97.2 H MCH 32.5 MCHC 33.4 RDW 12.7 Plt Count 171 MPV 10.7 H Neut % (Auto) 71.4 Lymph % (Auto) 17.6 [place] % (Auto) 9.7 Eos % (Auto) 0.7 Baso % (Auto) 0.3 Neut # (Auto) 4.92 Lymph # (Auto) 1.2 [place] # (Auto) 0.7 Eos # (Auto) 0.1 Baso # (Auto) 0.0 Nucleated RBC % (a uto) 0 Nucleated RBCs # 0.0 Sodium Potassium Chloride Carbon Dioxide Anion Gap BUN Creatinine GFR Calculation Glucose POC Glucose 112 113 Calculated Osmolal ity Calcium Vitals: Last Vital Signs Temp 98.0 F 03/22/20 11:04 Pulse 72 03/22/20 11:10 Resp 21 H 03/22/20 11:04 BP 121/60 03/22/20 11:04 Pulse Ox 94 03/22/20 11:10 Discharge Plan Discharge Patient Disposition: Home Condition: Stable Prescriptions: New aspirin [Enteric Coated Aspirin] 81 mg tablet,delayed release (DR/EC) 81 mg PO DAILY 30 Days Qty: 30 RF: 0 Continued valsartan 160 mg tablet 160 mg PO DAILY RF: 0 pantoprazole 40 mg tablet,delayed release (DR/EC) 40 mg PO DAILY RF: 0 finasteride 5 mg tablet 5 mg PO DAILY RF: 0 tamsulosin [Flomax] 0.4 mg capsule 0.4 mg PO DAILY RF: 0 metoprolol tartrate 50 mg tablet 50 mg PO DAILY RF: 0 empagliflozin 25 mg tablet 25 mg PO DAILY RF: 0 nifedipine 30 mg tablet extended release 30 mg PO DAILY RF: 0 isosorbide mononitrate 120 mg tablet extended release 24 hr 120 mg PO DAILY RF: 0 atorvastatin 40 mg tablet 40 mg PO DAILY RF: 0 metformin 500 mg tablet 500 mg PO BID RF: 0 Nitrostat 0.4 mg Tablet, Sublingual 0.4 mg SUBLINGUAL Q5M PRN (Reason: Chest Pain) RF: 0 Discharge Orders: Discharge Order (Routine); Ordered 03/22/20 Ordered By: Tamara Wilson Referrals: Mansoor Castro [Primary Care Provider] - 4-7 days Naldo Jarquin MD [Physician] - 2 weeks Discharge Diet: Cardiac Discharge Activity: Increase activity as tolerated Activity Restrictions/Additional Instructions: Continue on home medications including atorvastatin, Imdur, metoprolol, nifedipine, started on aspirin 81 mg daily. Stress test performed in the hospital showed no evidence of any obstructive blood flow. Continue with close cardiology follow-up as scheduled on 04/05/[address] Jarquin Follow-up with primary care provider at the [place] in 5 to 7 days Call your physician or present to the ED for any acute illness or concern Discharge Attestations Time Spent in Discharge Care*: greater than 30 min Specific Discharge Activities: Specific discharge activities: educating patient, discussing with pcp/other providers, discussing with home health care case manager/social workers/dc planners and documenting/other paperwork Quality Metrics Clinical Quality Measures During this hospital stay, did patient experience: None Coding Level of Care Code Acute Railroad Signal Operator for Carag Fwd Diagnoses Chest pain R07.9 Benign essential HTN I10 Atherosclerotic heart disease of [place] coronary artery without angina pectoris I25.10 [place] vs. transplanted heart: [place] heart Dyslipidemia E78.5
--- NOTE | 2020-03-22 15:25 | PC.NURSE ---
Discharge instructions given per the physician's orders. Patient verbalized understanding of information and did not have any further questions. Patient dressed self. No needs identified at this time.
--- NOTE | 2020-03-22 17:08 | PC.NURSE ---
Patient discharged home at this time; provided discharge instructions and educated patient on further chest pain patient verbalized understanding of all instructions IV dc cath intact min bleeding noted bandage applied patient assisted to private vehicle via wheel chair by staff patient alert oriented and instable condition.
== END 2020-03-22 16:00 | disposition home or self-care (01) ==
LOC: ER 06:18 → CSU 07:30
PROVIDERS: Emergency Medicine; Admitting Provider Internal Medicine; Emergency Provider Family Medicine; PCP Family Medicine; Visit Provider Family Medicine
DX: R07.9 Chest pain, unspecified (principal); I10 Essential (primary) hypertension; I25.10 Atherosclerotic heart disease of native coronary artery without angina pectoris; E78.5 Hyperlipidemia, unspecified; I25.2 Old myocardial infarction; E11.9 Type 2 diabetes mellitus without complications; Z87.891 Personal history of nicotine dependence; N40.0 Benign prostatic hyperplasia without lower urinary tract symptoms; Z79.84 Long term (current) use of oral hypoglycemic drugs
CPT/HCPCS: 12345; 36415; 36416; 71045; 78452; 80048; 80053; 82962; 83690; 83735; 84484; 85025; 85610; 93005; 93017; 96372; 96375; 99283; 99285; A9500; G0378; J1650; J1815; J2060; J2785

== ENCOUNTER → 2020-10-04 11:56 | Outpatient (BNVA) | payer OTHER, SELFPAY | PROVIDERS: PCP Family Medicine; Visit Provider Internal Medicine Cardiovascular Disease | DX: R06.02 Shortness of breath (principal); I50.33 Acute on chronic diastolic (congestive) heart failure; E78.5 Hyperlipidemia, unspecified; I25.10 Atherosclerotic heart disease of native coronary artery without angina pectoris; E11.65 Type 2 diabetes mellitus with hyperglycemia; I11.0 Hypertensive heart disease with heart failure | CPT/HCPCS: 80048; 83880 ==

== ENCOUNTER 2020-10-11 06:29 | Outpatient (RCR) | payer OTHER, SELFPAY | END 2020-10-26 23:59 | disposition home or self-care (01) | LOC: SPT 06:29 | PROVIDERS: PCP Family Medicine; Referring Provider Family Medicine; Visit Provider Family Medicine | DX: M25.562 Pain in left knee (principal) | CPT/HCPCS: 97033; 97110; 97161 ==

== ENCOUNTER 2020-10-27 06:00 | Outpatient (RCR) | payer OTHER, SELFPAY | END 2020-11-01 23:00 | disposition home or self-care (01) | LOC: SPT 06:00 | PROVIDERS: PCP Family Medicine; Referring Provider Family Medicine; Visit Provider Family Medicine | DX: M25.562 Pain in left knee (principal) | CPT/HCPCS: 97033; 97110 ==

== ENCOUNTER 2021-06-27 11:01 | Observation (INO) | payer OTHER, SELFPAY ==
[2021-06-27] VITALS (8 sets, daily range): BP systolic 110–136; BP diastolic 56–81; PULSE 67–77; RESP 15–20; TEMP 36.4; O2SAT 96–98; BMI 29.7
--- NOTE | 2021-06-27 11:19 | ECG_ITS ---
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 Measurements Intervals [place] Rate: 73 P: 66 [place]: 157 QRS: 59 QRSD: 92 T: 74 QT: 383 QTc: 424 Interpretive Statements SINUS RHYTHM WITH OCCASIONAL SUPRAVENTRICULAR PREMATURE COMPLEXES Compared to ECG 03/21/2020 12:26:07 No significant changes Electronically Signed On 06-27-2021 22:00:49 PUBLIC ADDRESS ANNOUNCER by Graeme Cheney M.D. [id number] f
--- NOTE | 2021-06-27 11:19 | XR_ITS ---
WS: [id number] Portable AP upright chest, 06/27/2021 Clinical Data: chest pain Comparison: Portable chest, 03/21/2020. Findings: No nodules, masses or effusions are seen. The heart is normal. The pulmonary vascularity is not increased. No pneumonia or pneumothorax is seen. The descending thoracic aorta shows mild tortuo sity. Monitor leads are on the chest wall. XR/XR chest 1V portable [id number] Impression: Atherosclerosis.
--- NOTE | 2021-06-27 11:28 | W.ED.CHESTPA ---
HPI - Chest Pain General: Chief Complaint: Chest Pain Stated Complaint: CHEST PAIN Time Seen by Provider: 06/27/21 11:02 History of Present Illness: HPI narrative: 75-year-old male presents emergency room complaining of chest pain. Patient was at the [facility] earlier today is complaining of chest pain he states that it began this morning while he was at rest he took several nitro at home and did have some relief of pain he says its worst it was a 9 of 3:10 nitro in addition to Nitropaste on his chest reports the pain to be 7-10 but is sitting talking comfortably and pain is worse when he takes a deep breath. He has been having this chest discomfort more frequently states is more intense today than it has been before. February 2020 he had a normal Lexiscan sestamibi stress test he does have a known history of coronary disease and had previously had stents he is still taking his clopidogrel. He is also diabetic and hypertensive. MD complaint: chest pain Pertinent past history: coronary artery disease Onset (ago): hour(s) Timing of current episode: episodic Onset: during rest Pain location: substernal Pain radiation: left arm and left shoulder Quality: aching and heaviness Relieving factors: nitroglycerin and rest Exacerbating factors: exertion Associated symptoms: Reports diaphoresis and dyspnea; Deny abdominal pain, fever(s), leg edema, nausea, palpitations, sense of impending doom, syncope or vomiting Treatment prior to arrival: nitroglycerin Review of Systems Const: Reports: diaphoresis; Denies: fever(s) ENMT: Denies: throat pain, ear or mastoid pain, nasal discharge or nasal congestion Card: Denies: palpitations or syncope Resp: Reports: dyspnea GI: Denies: abdominal pain, nausea or vomiting : Denies: flank pain, dysuria, urinary frequency or urinary urgency Skin/Breast: Denies: rash or pruritus PFSH ED PFSH: Medical History Atherosclerotic heart disease of [place] coronary artery without angina pectoris Benign essential HTN Dyslipidemia History of coronary angiogram 2017 Hypertension Primary osteoarthritis, left shoulder Type 2 diabetes mellitus Surgical History History of back surgery History of hernia repair History of shoulder surgery Family History Father CAD (coronary artery disease) Mother , No history of heart disease, diabetes or stroke Dementia Sister Cancer Denies family history of Diabetes Clotting disorder Chronic kidney disease (CKD) Suicide Anesthesia complication Bleeding disorder Lung disease Stroke Social History Smoking and tobacco status: former smoker Alcohol intake: never Physical Exam Const: GENERAL APPEARANCE: cooperative and comfortable ORIENTATION/CONSCIOUSNESS: Yes awake, Yes oriented to person, Yes oriented to place and Yes oriented to time HENMT: COMMON NORMALS: normocephalic, atraumatic and hearing grossly normal bilaterally HEAD & SCALP: normocephalic and atraumatic Neck/C-Spine: COMMON NORMALS: no JVD Resp: COMMON NORMALS: normal respiratory effort, No retractions, No use of accessory muscles and clear to auscultation bilaterally AUSCULTATION: clear to auscultation bilaterally Cardio: COMMON NORMALS: no JVD, regular rate, regular rhythm and No murmurs present (Cardio) RATE: regular rate RHYTHM: regular rhythm GI: COMMON NORMALS: Soft to palpation and No hepatosplenomegaly present AUSCULTATION: Yes normoactive bowel sounds PALPATION: Yes Soft to palpation, No Tenderness to palpation present (GI), No Guarding due to palpation present (GI) and Yes No hepatosplenomegaly present Extremity: COMMON NORMALS: normal to inspection, capillary refill normal, no clubbing, cyanosis or edema, no calf tenderness and no pedal edema Neuro: SENSORIUM/ORIENTATION: Yes oriented to person, Yes oriented to place and Yes oriented to time Skin: COMMON NORMALS: no rashes or lesions noted GENERAL SKIN EXAM: no rashes or lesions noted Course Vital Signs: Vital signs: Vital Signs Temperature 97.6 F 06/27/21 17:32 Pulse Rate 77 06/27/21 17:32 Respiratory Rate 19 H 06/27/21 17:32 Blood Pressure 136/79 06/27/21 17:32 Pulse Oximetry 96 06/27/21 15:42 MDM - Chest Pain MDM Narrative: Medical decision making narrative: Chest pain with onset at rest relieved by nitro. He is essentially pain-free at this time. Troponins unremarkable. Patient has been having this for some time he had been seeing Dr. Jarquin and was supposed to be getting set up for an angiogram given the fact that it is escalating and frequency and intensity at this point we will go ahead and put him into complete the rule out consult cardiology. Discussed with Dr. Adkins he concurs to hospitalist will look except to his services orders written. Lab Data: Labs: Lab Results 06/27/21 06/27/21 06/27/21 10:49 10:49 10:49 WBC 5.6 10^3/uL 10^3/ uL (4.0-10.0) RBC 4.87 10^6/uL 10^6 /uL (4.1-5.3) Hgb 16.1 g/dL g/dL (11.7-16.6) Hct 45.9 % % (42.0-52.0) MCV 94.3 fl H fl (80-94) MCH 33.1 pg pg (28.0-34.0) MCHC 35.1 g/dL g/dL (30.0-36.0) RDW 12.6 % % (12.1-15.1) Plt Count 178 10^3/cmm 10^3 /cmm (130-400) MPV 10.8 fL H fL (7.4-10.4) Neut % (Auto) 59.2 % % Lymph % (Auto) 28.9 % % [place] % (Auto) 10.4 % % Eos % (Auto) 0.9 % % Baso % (Auto) 0.2 % % Neut # (Auto) 3.32 10^3/uL 10^3 /uL (1.8-7.7) Lymph # (Auto) 1.6 10^3/uL 10^3/ uL (0.8-4.8) [place] # (Auto) 0.6 10^3/uL 10^3/ uL (0.2-0.9) Eos # (Auto) 0.1 10^3/uL 10^3/ uL (0.0-0.8) Baso # (Auto) 0.0 10^3/uL 10^3/ uL (0.0-0.1) Nucleated RBC % (a uto) 0 % % Nucleated RBCs # 0.0 /100WBC /100W BC D-Dimer Sodium 139 mmol/L mmol/L (136-145) Potassium 4.5 mmol/L mmol/L (3.5-5.1) Chloride 103 mmol/L mmol/L (98-107) Carbon Dioxide 22 mmol/L mmol/L (22-29) Anion Gap 18.5 (5-19) BUN 16 mg/dL mg/dL (8-23) Creatinine 1.1 mg/dL mg/dL (0.7-1.2) GFR Calculation Not Reportable Glucose 98 mg/dL mg/dL (65-115) Calculated Osmolal ity 289 mOsm/kg mOsm/ kg (285-295) Calcium 9.5 mg/dL mg/dL (8.5-10.5) Iron TIBC % Saturation Unsat Iron Binding Total Bilirubin 0.6 mg/dL mg/dL (0.15-1.2) AST 26 U/L U/L (0-40) ALT 30 U/L U/L (0-41) Alkaline Phosphata se 69 IU/L IU/L (40-130) Creatine Kinase 66 U/L U/L (39-308) Troponin T Baselin e 9 ng/L ng/L (0-15) Troponin T 120 Min [place] Troponin T NT-Pro-B Natriuret Pep Total Protein 6.9 g/dL g/dL (6.6-8.7) Albumin 4.7 g/dL g/dL (3.5-5.2) Globulin 2.2 g/dL g/dL (1.3-4.6) TSH 06/27/21 06/27/21 06/27/21 10:49 10:49 12:59 WBC RBC Hgb Hct MCV MCH MCHC RDW Plt Count MPV Neut % (Auto) Lymph % (Auto) [place] % (Auto) Eos % (Auto) Baso % (Auto) Neut # (Auto) Lymph # (Auto) [place] # (Auto) Eos # (Auto) Baso # (Auto) Nucleated RBC % (a uto) Nucleated RBCs # D-Dimer 0.36 ug/mIFEU ug/ mIFEU (0-0.59) Sodium Potassium Chloride Carbon Dioxide Anion Gap BUN Creatinine GFR Calculation Glucose Calculated Osmolal ity Calcium Iron TIBC % Saturation Unsat Iron Binding Total Bilirubin AST ALT Alkaline Phosphata se Creatine Kinase Troponin T Baselin e Troponin T 120 Min [place] 8.49 ng/L ng/L (0-15) [place] Troponin T -0.51 ABS# L ABS# (0-10) NT-Pro-B Natriuret Pep Total Protein Albumin Globulin TSH 2.41 uIU/mL uIU/m L (0.27-4.20) 06/27/21 12:59 WBC RBC Hgb Hct MCV MCH MCHC RDW Plt Count MPV Neut % (Auto) Lymph % (Auto) [place] % (Auto) Eos % (Auto) Baso % (Auto) Neut # (Auto) Lymph # (Auto) [place] # (Auto) Eos # (Auto) Baso # (Auto) Nucleated RBC % (a uto) Nucleated RBCs # D-Dimer Sodium Potassium Chloride Carbon Dioxide Anion Gap BUN Creatinine GFR Calculation Glucose Calculated Osmolal ity Calcium Iron 79 ug/dL ug/dL (59-158) TIBC 234 mcg/dl mcg/dl % Saturation 33.7 % % (20-50) Unsat Iron Binding 155 ug/dL ug/dL (112-347) Total Bilirubin AST ALT Alkaline Phosphata se Creatine Kinase Troponin T Baselin e Troponin T 120 Min [place] Troponin T NT-Pro-B Natriuret Pep 266 pg/mL H pg/mL (0-125) Total Protein Albumin Globulin TSH Discharge Plan Discharge Patient Disposition: Admitted As Inpatient Admit Provider: Keith Giron Clinical Impression: Chest pain, Atherosclerotic heart disease of [place] coronary artery without angina pectoris, Type 2 diabetes mellitus, Benign essential HTN Condition: Stable Coding Level of Care Code ED Asset Manager for Rafael Weinstein
[2021-06-27 11:34] LABS: Basophils % 0.2 %; Eosinophils # 0.1 10^3/uL (0.0-0.8); Eosinophils % 0.9 %; Hematocrit 45.9 % (42.0-52.0); Hemoglobin 16.1 g/dL (11.7-16.6); Lymphocytes # 1.6 10^3/uL (0.8-4.8); Lymphocytes % 28.9 %; Mean Corpuscular HGB Conc 35.1 g/dL (30.0-36.0); Mean Corpuscular Hemoglobin 33.1 pg (28.0-34.0); Mean Corpuscular Volume 94.3 fl (80-94); Mean Platelet Volume 10.8 fL (7.4-10.4); Monocytes # 0.6 10^3/uL (0.2-0.9); Monocytes % 10.4 %; Neutrophils # 3.32 10^3/uL (1.8-7.7); Neutrophils % 59.2 %; Nucleated Red Blood Cells % 0 %; Platelet Count 178 10^3/cmm (130-400); Red Blood Count 4.87 10^6/uL (4.1-5.3); Red Cell Distribution Width 12.6 % (12.1-15.1); White Blood Count 5.6 10^3/uL (4.0-10.0)
[2021-06-27 11:56] LABS: Troponin(5th) Baseline 9 ng/L (0-15)
[2021-06-27 11:59] LABS: Alanine Aminotransferase 30 U/L (0-41); Albumin Level 4.7 g/dL (3.5-5.2); Alkaline Phosphatase 69 IU/L (40-130); Blood Urea Nitrogen 16 mg/dL (8-23); Calcium 9.5 mg/dL (8.5-10.5); Carbon Dioxide 22 mmol/L (22-29); Chloride 103 mmol/L (98-107); Creatine Phosphokinase 66 U/L (39-308); Globulin 2.2 g/dL (1.3-4.6); Glucose 98 mg/dL (65-115); Osmolality Calculated 289 mOsm/kg (285-295); Sodium 139 mmol/L (136-145); Total Bilirubin 0.6 mg/dL (0.15-1.2); Total Protein 6.9 g/dL (6.6-8.7)
[2021-06-27 12:39] LABS: Anion Gap 18.5 (5-19); Aspartate Amino Transferase 26 U/L (0-40); Potassium 4.5 mmol/L (3.5-5.1)
--- NOTE | 2021-06-27 13:19 | ECG_ITS ---
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 Measurements Intervals [place] Rate: 69 P: 68 TX: 166 QRS: 56 QRSD: 90 T: 75 QT: 412 QTc: 442 Interpretive Statements SINUS RHYTHM WITH OCCASIONAL SUPRAVENTRICULAR PREMATURE COMPLEXES Compared to ECG 06/27/2021 11:16:50 No significant changes Electronically Signed On 06-27-2021 22:06:10 FOUNDRY TECHNICIAN by Graeme Cheney M.D. [email or web address] [id number] f
--- NOTE | 2021-06-27 13:25 | PM.HP ---
Providers/Chief Complaint Primary Care Provider: Aziza Marsh MD Chief Complaint: CHEST PAIN History of Present Illness Beka Hung is a 75 year old male with history of type 2 diabetes mellitus, CAD, dyslipidemia, hypertension, former smoker who follows up with Dr. Jarquin as an outpatient and last seen in his office on 04/24 who presents to the ER today with chest pain that has been going on since 6 AM. Patient states usually has chest pain once every couple of weeks and it goes away with 1 or 2 nitros but it did not go away today. Patient complains of left retrosternal chest pain radiating to the neck. Patient states sometimes the pain goes from shoulder to shoulder up sometimes to neck today it went to the neck. Denies any nausea, vomiting, headache. He states usually has difficulty in breathing with exertion which has been going on for last couple of years. He states he last spoke with Dr. Jarquin a month ago and plan was to do a cardiac angiogram as an outpatient. In the ER he received Nitropaste and pain was relieved. Denies any new changes to his medications. Review of Systems General: Reports: 10 or more systems reviewed and unremarkable except in HPI and below Const: Denies: fever(s), chills, body aches, change in appetite, change in weight, malaise, night sweats, diaphoresis, change in sleep pattern, daytime sleepiness or snoring Eyes: Denies: change in vision, blurry vision, photophobia, eye discomfort or eye discharge ENMT: Denies: throat pain, enlarged tonsils, hoarseness, mouth pain, oral sores, dry mouth, tinnitus, nasal congestion or post nasal drip Card: Denies: chest pain, palpitations, irregular heart rhythm, edema, swelling of feet/ankles, lightheadedness, syncope, pre-syncope, dyspnea on exertion, orthopnea, leg pain with exertion or acrocyanosis Resp: Denies: dyspnea, productive cough, non-productive cough, wheezing, stridor, pain on inspiration, change in phlegm color, hemoptysis or chest congestion GI: Denies: abdominal pain, nausea, vomiting, hematemesis, coffee ground emesis, dysphagia, heartburn, diarrhea, constipation, bloating, GI cramping, change in bowel habits, pain on defecation, hematochezia or melena : Denies: flank pain, difficulty urinating, dysuria, urinary frequency, urinary urgency, urinary hesitancy, urinary dribbling, difficulty starting urination, change in urine stream, nocturia or hematuria Musc: Denies: neck pain, back pain, extremity pain, joint pain, joint swelling, joint redness, joint stiffness or limited range of motion Neuro: Denies: headache(s), numbness in extremities, weakness in extremities, sensory changes, lack of coordination, difficulty walking, frequent falls, dizziness, vertigo, confusion, Slurred speech present, difficulty communicating thoughts or seizure-like activity Psych: Denies: anxiety, depression, mood swings, panic attacks, hopelessness or irritability Endo: Denies: polyuria, polydipsia, tired all the time, cold intolerance, excessive sweating, flushing or heat intolerance Remi/Lymph: Denies: easy bruising or easy bleeding All/Imm: Denies: tongue swelling, facial swelling or acute wheezing Medications/Allergies Home Medications Medication Instructions Recorded Confirmed Last Taken Type atorvastatin 40 mg tablet 40 mg PO BEDTIME 12/04/19 06/27/21 06/26/21 History empagliflozin 25 mg tablet 25 mg PO [facility] 12/04/19 06/27/21 06/27/21 06:00 History finasteride 5 mg tablet 5 mg PO QA 12/04/19 06/27/21 06/27/21 06:00 History isosorbide mononitrate 120 mg 120 mg PO QA 12/04/19 06/27/21 06/27/21 06:00 History tablet,extended release 24 hr nifedipine 30 mg tablet,extended 30 mg PO QA 12/04/19 06/27/21 06/27/21 06:00 History release pantoprazole 40 mg tablet,delayed 40 mg PO QA 12/04/19 06/27/21 06/27/21 06:00 History release tamsulosin 0.4 mg capsule 0.4 mg PO QPM 12/04/19 06/27/21 06/26/21 History nitroglycerin [Nitrostat] 0.4 mg SUBLINGUAL Q5M PRN 03/21/20 06/27/21 06/27/21 History gabapentin 300 mg capsule 300 mg PO BID 10/04/20 06/27/21 06/27/21 06:00 History metformin 500 mg tablet 250 mg PO BID tab 10/04/20 06/27/21 06/27/21 06:00 History valsartan 160 mg tablet 80 mg PO BEDTIME tab 10/04/20 06/27/21 06/26/21 History aspirin [Aspir-81] 81 mg PO QAM 06/27/21 06/27/21 06/27/21 History cholecalciferol (vitamin D3) 3,000 unit PO QAM 06/27/21 06/27/21 06/27/21 History [Vitamin D3] fluticasone propionate [Flonase] 1 spray INTRANASAL DAILY PRN 06/27/21 06/27/21 Unknown History metoprolol tartrate 12.5 mg PO BID 06/27/21 06/27/21 06/27/21 06:00 History Allergies Allergy/AdvReac Type Severity Reaction Status Date / Time codeine Allergy Severe ALGY-Anaphy Verified 06/27/21 12:19 laxis ropinirole Allergy Intermediate ADR-Confusi Verified 06/27/21 12:19 on sulfamethoxazole Allergy Mild sweating Verified 06/27/21 12:19 [From Bactrim] trimethoprim [From Bactrim] Allergy Mild sweating Verified 06/27/21 12:19 morphine Allergy ADR/ALGY-Pa Verified 06/27/21 12:19 lpitations propoxyphene [From Darvon] Allergy ALGY-Difficulty Verified 06/27/21 12:19 Breathing PFSH Acute PFSH: Medical History (Updated 06/27/21 @ 13:31 by Keith Giron MD) Atherosclerotic heart disease of [place] coronary artery without angina pectoris Benign essential HTN Dyslipidemia History of coronary angiogram 2017 Hypertension Primary osteoarthritis, left shoulder Type 2 diabetes mellitus Surgical History History of back surgery History of hernia repair History of shoulder surgery Family History Father CAD (coronary artery disease) Mother , No history of heart disease, diabetes or stroke Dementia Sister Cancer Denies family history of Diabetes Clotting disorder Chronic kidney disease (CKD) Suicide Anesthesia complication Bleeding disorder Lung disease Stroke Social History Smoking and tobacco status: former smoker Alcohol intake: never Vitals/I&O/Wt Last Vital Signs Pulse 76 06/27/21 11:02 Resp 15 06/27/21 11:02 BP 134/62 06/27/21 11:02 Pulse Ox 97 06/27/21 11:02 Weight last 48 hrs Weight 93.894 kg Physical Exam Narrative: EXAM NARRATIVE: General: No acute distress, AO x3 HEENT: PERRLA, pupils bilaterally equal and reactive Chest: Normal vesicular breath sounds, no added sounds, equal good air entry bilaterally CVS: S1-S2 regular, no murmurs, no tachycardia, no gallops, no rubs Abdomen: Soft, nontender, no organomegaly, bowel sounds present Neuro: No focal deficits, no facial deformity, AO x3, power 5/5 in all limbs Data : 06/27/21 10:49 06/27/21 10:49 A&P Assessment and plan (1) Atypical chest pain: Status: Acute (2) Atherosclerotic heart disease of [place] coronary artery without angina pectoris: Status: Acute Qualifiers: [place] vs. transplanted heart: [place] heart Qualified Code(s): I25.10 - Atherosclerotic heart disease of [place] coronary artery without angina pectoris (3) Benign essential HTN: Status: Acute (4) Dyslipidemia: Status: Acute (5) Type 2 diabetes mellitus: Status: Acute Qualifiers: Diabetes mellitus complication status: with hyperglycemia Diabetes mellitus fpc insulin use: without fpc use Qualified Code(s): E11.65 - Type 2 diabetes mellitus with hyperglycemia Additional A&P Information Cycle troponins. Check echocardiogram, D-dimer, iron panel, TSH, A1c, lipid panel. We will consult cardiology for further recommendations and possible cardiac angiogram. Continue with home dose of aspirin, statin, nitrate, beta-gallo. Continue with Nitropaste for now. Last stress test from 02/2020 was negative for any acute ischemia. Echocardiogram done in 2018 shows a normal EF, mild LVH, grade 1 diastolic dysfunction. Last angiogram in 2017 showed normal left main, 20 to 30% LAD, 2030% ostial circumflex, normal RCA, large ramus without significant stenosis with elevated LVEDP. Hypertension: Goal blood pressure less than 140/90 mmHg. Continue with home dose of nitrate, beta-gallo, nifedipine, valsartan. Type 2 diabetes mellitus: Hold OHA's. Insulin sliding scale. Continue other chronic medications including finasteride, Flomax, gabapentin. Full code. Carb consistent cardiac diet. N.p.o. after midnight for possible cardiac angiogram. Protonix for PUD prophylaxis. Lovenox for DVT prophylaxis. Attestations Medical Necessity Statement*: Admission under observation for further evaluation of atypical chest pain in setting of CAD, dyslipidemia, uncontrolled hypertension and type 2 diabetes mellitus Time Spent in Patient Care: Greater than 35 minutes (>than 50% of time spent in counselling and/or direct pt care on unit). 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
--- NOTE | 2021-06-27 13:32 | USCV_ITS ---
Beka Hung Age: 75 Gender: M : 1945 Exam Date: 06/27/2021 13:46 Ordering Phys: Keith Giron MD Technologist: Stefanie Navarro [place] [facility] [place]: HTN, POSS ACS BP: 134 / 62 HR: 73 Rhythm: Other Technical Quality: Adequate MEASUREMENTS (Male / Female) Normal Values 2D ECHO LV Diastolic Diameter PLAX 4.8 cm 4.2 - 5.9 / 3.9 - 5.3 cm LV Systolic Diameter PLAX 3.6 cm IVS Diastolic Thickness 1.4 cm 0.6 - 1.0 / 0.6 - 0.9 cm IVS Systolic Thickness 2.0 cm LVPW Diastolic Thickness 1.4 cm 0.6 - 1.0 / 0.6 - 0.9 cm LVPW Systolic Thickness 2.1 cm LVOT Diameter 2.0 cm LV Ejection Fraction 2D Teich 48.2 % LV Ejection Fraction MOD 2C 60.4 % LV Ejection Fraction 2C AL 65.2 % LA Diameter 3.3 cm LA Width 3.3 cm LA Height 4.0 cm RA Width 2.6 cm RA Height 4.4 cm Aorta at Sinotubular Diameter 2.5 cm M-MODE Aortic Annulus Diameter 3.4 cm LA Ao Ratio MM 0.9 MV E Point Septal Separation 0.6 cm DOPPLER AV Peak Velocity 113.0 cm/s LVOT Peak Velocity 97.0 cm/s AV Area Cont Eq vti 3.2 cm squared AV Area Cont Eq pk 2.8 cm squared MV Peak Velocity 89.0 cm/s MV Area PHT 2.8 cm squared Mitral E to A Ratio 1.2 MV E' Velocity 50.5 cm/s Mitral E to MV E' Ratio 9.4 Mitral E to LV E' Lateral Ratio 8.9 Mitral E to LV E' Septal Ratio 10.2 TR Peak Velocity 173.2 cm/s TR Peak Gradient 12.0 mmHg TR Mean Velocity 137.9 cm/s TR Mean Gradient 7.7 mmHg TR Velocity Time Integral 39.1 cm TV Peak E Velocity 46.0 cm/s PV Peak Velocity 104.0 cm/s RV Acceleration Time 0.1 s RV Ejection Time 0.3 s RV AcT/ET 0.5 FINDINGS Left Ventricle Normal left ventricular size and systolic function, EF 68 %. Mild left ventricular hypertrophy. No regional wall motion abnormalities. Right Ventricle The right ventricle is normal in size and function. Right Atrium The right atrium is normal in size. Left Atrium The left atrium is normal in size. Mitral Valve No gross abnormalities no Aortic Valve Thickened aortic valve. Tricuspid Valve Trace tricuspid valve regurgitation. Pulmonic Valve No gross abnormalities noted Pericardium Normal pericardium without effusion. Aorta Normal ascending aorta dimension. CONCLUSIONS Normal left ventricular size and systolic function, EF 68 %. Mild left ventricular hypertrophy. No regional wall motion abnormalities. Thickened aortic valve. Trace tricuspid valve regurgitation. There is no pericardial effusion. There are no intracardiac masses. Compared to the study from 01/18/2018, there is no significant change in the 2D findings Dr Naldo Jarquin MD FAC (Electronically Signed) Final Date: 27 June 2021 19:35 S
[2021-06-27 13:39] LABS: Troponin 5 2HR 8.49 ng/L (0-15)
[2021-06-27 13:42] LABS: D Dimer 0.36 ug/mIFEU (0-0.59)
[2021-06-27 13:44] LABS: Troponin 5 2HR Delta -0.51 ABS# (0-10)
[2021-06-27 13:50] LABS: Thyroid Stimulating Hormone 2.41 uIU/mL (0.27-4.20)
[2021-06-27 14:00] LABS: Iron 79 ug/dL (59-158); NT Pro B Type Natriuretic Pept 266 pg/mL (0-125); Percent Saturation 33.7 % (20-50); Total Iron Binding Capacity 234 mcg/dl; Unsaturated Iron Binding 155 ug/dL (112-347)
--- NOTE | 2021-06-27 16:42 | PM.CONSULT ---
Providers/Reason For Consult Consulting Physician/Specialty*: Graeme Cheney MD/Cardiology Reason for Consult*: Chest pain Requesting Physician: Dr Lee Attending Physician: Keith Giron MD Primary Care Provider: Aziza Marsh MD History of Present Illness History of Present Illness Beka Hung is a 75 year old male with past medical history of type 2 diabetes, coronary artery disease, dyslipidemia, hypertension and smoking was presented to the ER with chest pain that was going on for several hours on and off. Usually 1 or 2 nitros relieve the pain however this time he says that he took 3 nitros chest pain was still present. Describes it as retrosternal with radiation to the jaw. Stress test over a year ago was normal. EKG does not show ischemic changes. Troponins have not trended up. Per patient's history was going to be scheduled for outpatient cath. Review of Systems General: Reports: 10 or more systems reviewed and unremarkable except in HPI and below Meds/Allergies Home Medications and Allergies Home Medications Medication Instructions Recorded Confirmed Last Taken Type atorvastatin 40 mg tablet 40 mg PO BEDTIME 12/04/19 06/27/21 06/26/21 History empagliflozin 25 mg tablet 25 mg PO QAM 12/04/19 06/27/21 06/27/21 06:00 History finasteride 5 mg tablet 5 mg PO QAM 12/04/19 06/27/21 06/27/21 06:00 History isosorbide mononitrate 120 mg 120 mg PO QAM 12/04/19 06/27/21 06/27/21 06:00 History tablet,extended release 24 hr nifedipine 30 mg tablet,extended 30 mg PO QAM 12/04/19 06/27/21 06/27/21 06:00 History release pantoprazole 40 mg tablet,delayed 40 mg PO QAM 12/04/19 06/27/21 06/27/21 06:00 History release tamsulosin 0.4 mg capsule 0.4 mg PO QPM 12/04/19 06/27/21 06/26/21 History nitroglycerin [Nitrostat] 0.4 mg SUBLINGUAL Q5M PRN 03/21/20 06/27/21 06/27/21 History gabapentin 300 mg capsule 300 mg PO BID 10/04/20 06/27/21 06/27/21 06:00 History metformin 500 mg tablet 250 mg PO BID tab 10/04/20 06/27/21 06/27/21 06:00 History valsartan 160 mg tablet 80 mg PO BEDTIME tab 10/04/20 06/27/21 06/26/21 History aspirin [Aspir-81] 81 mg PO QAM 06/27/21 06/27/21 06/27/21 History cholecalciferol (vitamin D3) 3,000 unit PO QAM 06/27/21 06/27/21 06/27/21 History [Vitamin D3] fluticasone propionate [Flonase] 1 spray INTRANASAL DAILY PRN 06/27/21 06/27/21 Unknown History metoprolol tartrate 12.5 mg PO BID 06/27/21 06/27/21 06/27/21 06:00 History Allergies Allergy/AdvReac Type Severity Reaction Status Date / Time codeine Allergy Severe ALGY-Anaphy Verified 06/27/21 12:19 laxis ropinirole Allergy Intermediate ADR-Confusi Verified 06/27/21 12:19 on sulfamethoxazole Allergy Mild sweating Verified 06/27/21 12:19 [From Bactrim] trimethoprim [From Bactrim] Allergy Mild sweating Verified 06/27/21 12:19 morphine Allergy ADR/ALGY-Pa Verified 06/27/21 12:19 lpitations propoxyphene [From Darvon] Allergy ALGY-Difficulty Verified 06/27/21 12:19 Breathing PFSH Acute PFSH: Medical History Atherosclerotic heart disease of [place] coronary artery without angina pectoris Benign essential HTN Dyslipidemia History of coronary angiogram 2017 Hypertension Primary osteoarthritis, left shoulder Type 2 diabetes mellitus Surgical History History of back surgery History of hernia repair History of shoulder surgery Family History Father CAD (coronary artery disease) Mother , No history of heart disease, diabetes or stroke Dementia Sister Cancer Denies family history of Diabetes Clotting disorder Chronic kidney disease (CKD) Suicide Anesthesia complication Bleeding disorder Lung disease Stroke Social History (Reviewed 06/28/21 @ 07:26 by Brandy Diego Smoking and tobacco status: former smoker Alcohol intake: never Vitals/I&O/Wt Last Vital Signs Pulse 69 06/27/21 15:42 Resp 15 06/27/21 15:42 BP 129/81 06/27/21 15:35 Pulse Ox 96 06/27/21 15:42 Weight last 48 hrs Weight 207 lb Physical Exam Narrative: EXAM NARRATIVE: GENERAL: Patient is alert, awake and oriented x3. [] NECK: No jugular vein distension. [] HEENT: No cyanosis. No icterus. No pallor. [] HEART: Regular S1 and S2. No murmur, rub or gallop. [] LUNGS: Clear to auscultate bilaterally. [] ABDOMEN: Soft, nontender and nondistended. Positive bowel sounds. No guarding, rebound or tenderness. [] CENTRAL NERVOUS SYSTEM: Grossly nonfocal. [] EXTREMITIES: Lower extremities with no edema bilaterally. Pulses palpable in the lower extremities, both dorsalis pedis and posterior tibial. [] A&P Assessment and plan (1) Chest pain: Status: Acute (2) Benign essential HTN: Status: Acute (3) Type 2 diabetes mellitus: Status: Acute (4) SOB (shortness of breath): Status: Acute (5) Dyslipidemia: Status: Acute Patient has presented with worsening chest pain symptoms not resolved by taking 3 nitros. He mentions the chest pain has been going on for a very long time however recently has been increasing and he is using more nitros. Feels on exertion. Has some atypical features as well. Associated with shortness of breath. However troponin has not trended up. Continue trending troponins. Order echocardiogram. Continue aspirin Keep patient n.p.o. for now. Will follow troponins. Patient will benefit from ischemic workup with coronary angiogram. 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
[2021-06-27] MEDS: gabapentin 300 mg Capsule PO (17:51)
[2021-06-27] MEDS: metoprolol tartrate 25 mg Tablet 12.5 MG PO (17:51)
[2021-06-27] MEDS: ferrous gluconate 324 mg Tablet PO (17:51)
[2021-06-27] MEDS: tamsulosin 0.4 mg Capsule PO (17:51)
[2021-06-27 18:08] LABS: Glucose Point of Care 110 mg/dL (70-110)
[2021-06-27 18:18] LABS: Troponin 5 6HR 8.48 ng/L (0-15)
[2021-06-27 18:20] LABS: Troponin 5 6HR Delta -0.52 ng/L (0-12)
[2021-06-27] MEDS: enoxaparin 40 mg/0.4 mL Syringe SUBCUT (18:25)
[2021-06-27 20:15] LABS: Glucose Point of Care 123 mg/dL (70-110)
[2021-06-27 20:15] LABS: Add Urine Microscopic? NO; Charge for UA Resulting for Rev
[2021-06-27] MEDS: losartan 50 mg Tablet 25 MG PO (20:20)
[2021-06-27] MEDS: atorvastatin 40 mg Tablet PO (20:21)
[2021-06-27 20:22] LABS: Bilirubin Urine Neg (Negative); Blood Urine Neg (Negative); Glucose Urine UA 4+ (Normal); Ketones Urine Negative (Negative); Leukocyte Esterase Urine Negative (Negative); Nitrate Urine Negative (Negative); Protein Urine Neg (Negative); Urine Appearance Clear (CLEAR); Urine Color Yellow (Yellow); Urobilinogen Urine Neg (Negative); pH Urine 6.5 (5-7)
[2021-06-27] MEDS: temazepam 15 mg Capsule PO (22:27)
[2021-06-28] VITALS (26 sets, daily range): BP systolic 102–135; BP diastolic 55–85; PULSE 62–77; RESP 0–24; TEMP 36.3–36.8; O2SAT 91–95
[2021-06-28 05:26] LABS: Basophils % 0.4 %; Eosinophils # 0.1 10^3/uL (0.0-0.8); Hematocrit 45.3 % (42.0-52.0); Hemoglobin 15.7 g/dL (11.7-16.6); Lymphocytes # 1.5 10^3/uL (0.8-4.8); Lymphocytes % 30.5 %; Mean Corpuscular HGB Conc 34.7 g/dL (30.0-36.0); Mean Corpuscular Hemoglobin 32.8 pg (28.0-34.0); Mean Corpuscular Volume 94.6 fl (80-94); Mean Platelet Volume 10.5 fL (7.4-10.4); Monocytes # 0.5 10^3/uL (0.2-0.9); Monocytes % 9.7 %; Neutrophils # 2.83 10^3/uL (1.8-7.7); Neutrophils % 57.2 %; Nucleated Red Blood Cells % 0 %; Platelet Count 149 10^3/cmm (130-400); Red Blood Count 4.79 10^6/uL (4.1-5.3); Red Cell Distribution Width 12.4 % (12.1-15.1)
[2021-06-28 05:36] LABS: Alanine Aminotransferase 26 U/L (0-41); Albumin Level 4.3 g/dL (3.5-5.2); Alkaline Phosphatase 65 IU/L (40-130); Anion Gap 16.1 (5-19); Aspartate Amino Transferase 19 U/L (0-40); Blood Urea Nitrogen 17 mg/dL (8-23); Calcium 9.2 mg/dL (8.5-10.5); Carbon Dioxide 25 mmol/L (22-29); Chloride 104 mmol/L (98-107); Globulin 2.3 g/dL (1.3-4.6); Glucose 95 mg/dL (65-115); Magnesium 1.7 mg/dL (1.7-2.3); Osmolality Calculated 293 mOsm/kg (285-295); Potassium 4.1 mmol/L (3.5-5.1); Sodium 141 mmol/L (136-145); Total Bilirubin 0.8 mg/dL (0.15-1.2); Total Protein 6.6 g/dL (6.6-8.7)
[2021-06-28] MEDS: finasteride 5 mg Tablet PO (05:42)
[2021-06-28] MEDS: aspirin 81 mg EC Tablet PO (05:42)
[2021-06-28] MEDS: isosorbide mononitrate ER 60 mg Tablet 120 MG PO (05:44)
[2021-06-28] MEDS: pantoprazole DR 40 mg Tablet PO (05:45)
[2021-06-28] MEDS: NIFEdipine ER (24 hr) 30 mg Tablet PO (05:45)
[2021-06-28 06:01] LABS: Chol HDL Ratio 2.78 mg/dL (1.0-5.00); Cholesterol 136 mg/dL (0-200); HDL Cholesterol 49 mg/dL (60-100); LDL Cholesterol Calculated 47 mg/dL (50-129); Triglycerides 201 mg/dL (0-150); VLDL Cholestrol Calculation 40 mg/dL (0-30)
[2021-06-28 06:20] LABS: Estmated Average Glucose 131; Hemoglobin A1C 6.2 % (4.0-6.0)
[2021-06-28 06:20] LABS: Glucose Point of Care 119 mg/dL (70-110)
[2021-06-28] MEDS: gabapentin 300 mg Capsule PO (09:03)
[2021-06-28] MEDS: metoprolol tartrate 25 mg Tablet 12.5 MG PO (09:04)
--- NOTE | 2021-06-28 09:18 | PM.PN ---
Subjective Subjective: Interval history: Patient is feeling better today. According to the patient, he has been having increasing episodes of chest pain lately. Couple of months ago, he had a episode of prolonged chest pain while attending a . He almost went to the hospital at that time but then,since the symptoms subsided, decided not to go. History also had a pleuritic component for the pain. Her pain was getting worse when he takes a deep breath. But today he do not have the pleuritic component. He has some discomfort in the lower substernal region. Medications: Reviewed: Yes Medication Review Details: Current Medications Acetaminophen (Acetaminophen 325 Mg Tablet) 650 mg PO Q6H PRN PRN Reason: Mild/Mod Pain Or Temp >/= 101 Al Hydrox/Mg Hydrox/Simethicone (Lcpy-Hsk-Ldpjmwcss-Daniela 30 Ml Udc) 15 ml PO Q6H PRN PRN Reason: INDIGESTION Aspirin (Aspirin 81 Mg Ec Tablet) 81 mg PO QAM [facility] Last Admin: 06/28/21 05:42 Dose: 81 mg Documented by: Atorvastatin Calcium (Atorvastatin 40 Mg Tablet) 80 mg PO BEDTIME VIV Bisacodyl (Bisacodyl 5 Mg Tablet) 10 mg PO DAILY PRN; Protocol PRN Reason: Constipation (see protocol) Calcium Carbonate (Calcium Carbonate 500 Mg Chew Tablet) 1,000 mg PO Q4H PRN PRN Reason: DYSPEPSI Dextrose (Dextrose 50% Syringe 50 Ml) 25 ml IVP ONCE PRN; Protocol PRN Reason: hypoglycemia protocol Dextrose (Dextrose 50% Syringe 50 Ml) 50 ml IVP PRN PRN; Protocol PRN Reason: hypoglycemia protocol Enoxaparin Sodium (Enoxaparin 40 Mg/0.4 Ml Syringe) 40 mg SUBCUT Q24H [facility] Last Admin: 06/27/21 18:25 Dose: 40 mg Documented by: Ferrous Gluconate (Ferrous Gluconate 324 Mg Tablet) 324 mg PO BIDWM [facility] Last Admin: 06/27/21 17:51 Dose: 324 mg Documented by: Finasteride (Finasteride 5 Mg Tablet) 5 mg PO QAM [facility] Last Admin: 06/28/21 05:42 Dose: 5 mg Documented by: Gabapentin (Gabapentin 300 Mg Capsule) 300 mg PO BID [facility] Last Admin: 06/28/21 09:03 Dose: 300 mg Documented by: Glucagon (Glucagon 1 Mg/Ml Inj 1 Ml) 1 mg IM ONCE PRN; Protocol PRN Reason: Adult Acute Hypoglycemia Prot. Dextrose (D5w) 500 mls @ 100 mls/hr IV ONCE PRN; Protocol PRN Reason: Adult Acute Hypoglycemia Prot Insulin Human Lispro (Insulin Lispro 100 Unit/1 Ml) 0 unit SUBCUT WM&BEDTIME VIV; Protocol Last Admin: 06/28/21 07:05 Dose: Not Given Documented by: Isosorbide Mononitrate (Isosorbide Mononitrate Er 60 Mg Tablet) 120 mg PO QAM [facility] Last Admin: 06/28/21 05:44 Dose: 120 mg Documented by: Losartan Potassium (Losartan 50 Mg Tablet) 25 mg PO BEDTIME [facility] Last Admin: 06/27/21 20:20 Dose: 25 mg Documented by: Magnesium Hydroxide (Magnesium Hydroxide 30 Ml Udc) 30 ml PO DAILY PRN; Protocol PRN Reason: Constipation (see protocol) Metoprolol Tartrate (Metoprolol Tartrate 25 Mg Tablet) 12.5 mg PO BID [facility] Last Admin: 06/28/21 09:04 Dose: 12.5 mg Documented by: Nifedipine (Nifedipine Er (24 Hr) 30 Mg Tablet) 30 mg PO QAM [facility] Last Admin: 06/28/21 05:45 Dose: 30 mg Documented by: Ondansetron HCl (Ondansetron 2 Mg/Ml Sdv 2 Ml) 4 mg IVP Q8H PRN PRN Reason: vomiting, or N/V if npo Pantoprazole Sodium (Pantoprazole Dr 40 Mg Tablet) 40 mg PO QAM [facility] Last Admin: 06/28/21 05:45 Dose: 40 mg Documented by: Tamsulosin HCl (Tamsulosin 0.4 Mg Capsule) 0.4 mg PO QPM [facility] Last Admin: 06/27/21 17:51 Dose: 0.4 mg Documented by: Temazepam (Temazepam 15 Mg Capsule) 15 mg PO BEDTIME PRN PRN Reason: INSOMNIA Last Admin: 06/27/21 22:27 Dose: 15 mg Documented by: Vitals/I&O/Wt Last Vital Signs Temp 98.2 F 06/28/21 03:08 Pulse 75 06/28/21 08:37 Resp 23 H 06/28/21 03:08 BP 131/67 06/28/21 08:37 Pulse Ox 93 06/28/21 03:08 06/27/21 06/28/21 06/28/21 22:59 06:59 14:59 Intake Total 436 / 436 Output Total 375 / 375 Balance 61 / 61 Weight last 48 hrs Weight 199 lb 8 oz Weight 207 lb Weight 207 lb Physical Exam Narrative: EXAM NARRATIVE: GENERAL: The patient is alert and oriented times three. Not in any acute distress. HEENT: No significant pallor, icterus or lymphadenopathy.Oral cavity: There are no mucous membrane lesions. NECK: Trachea appears to be central. No masses noted. No JVD or thyromegaly appreciated. RESPIRATORY: Chest is symmetrical. No intercostals muscle retraction or any accessory muscle activation. There is no chest wall tenderness. Breath sounds are heard bilaterally. No rales or rhonchi heard. No evidence of any consolidation. BREASTS: Deferred. HEART: The heart sounds are normal. No S3 or S4. Short systolic murmur in the left sternal border. No pericardial rub ABDOMEN: No vessel pulsations or distention. No tenderness. No organomegaly appreciated. Bowel sounds are normally heard. : Deferred. RECTAL: Deferred. LYMPHATIC: No lymphadenopathy noted in the neck or groin. EXTREMITIES: No edema or cyanosis. No clubbing. Peripheral pulses are palpated in fairly good volume and amplitude MUSCULOSKELETAL: No acute joint deformities or swelling SKIN: There are no significant rashes or ecchymosis NEUROPSYCHIATRIC: The patient is alert and oriented x3. Appears to be in a good mood. No tremors or rigidity noted. Data : 06/28/21 04:39 06/28/21 04:39 Micro: Laboratory Last Values WBC 5.0 10^3/uL (4.0-10.0) 06/28/21 04:39 RBC 4.79 10^6/uL (4.1-5.3) 06/28/21 04:39 Hgb 15.7 g/dL (11.7-16.6) 06/28/21 04:39 Hct 45.3 % (42.0-52.0) 06/28/21 04:39 MCV 94.6 fl (80-94) H 06/28/21 04:39 MCH 32.8 pg (28.0-34.0) 06/28/21 04:39 MCHC 34.7 g/dL (30.0-36.0) 06/28/21 04:39 RDW 12.4 % (12.1-15.1) 06/28/21 04:39 Plt Count 149 10^3/cmm (130-400) 06/28/21 04:39 MPV 10.5 fL (7.4-10.4) H 06/28/21 04:39 Neut % (Auto) 57.2 % 06/28/21 04:39 Lymph % (Auto) 30.5 % 06/28/21 04:39 [place] % (Auto) 9.7 % 06/28/21 04:39 Eos % (Auto) 2.0 % 06/28/21 04:39 Baso % (Auto) 0.4 % 06/28/21 04:39 Neut # (Auto) 2.83 10^3/uL (1.8-7.7) 06/28/21 04:39 Lymph # (Auto) 1.5 10^3/uL (0.8-4.8) 06/28/21 04:39 [place] # (Auto) 0.5 10^3/uL (0.2-0.9) 06/28/21 04:39 Eos # (Auto) 0.1 10^3/uL (0.0-0.8) 06/28/21 04:39 Baso # (Auto) 0.0 10^3/uL (0.0-0.1) 06/28/21 04:39 Nucleated RBC % (auto) 0 % 06/28/21 04:39 Nucleated RBCs # 0.0 /100WBC 06/28/21 04:39 D-Dimer 0.36 ug/mIFEU (0-0.59) 06/27/21 10:49 Sodium 141 mmol/L (136-145) 06/28/21 04:39 Potassium 4.1 mmol/L (3.5-5.1) 06/28/21 04:39 Chloride 104 mmol/L (98-107) 06/28/21 04:39 Carbon Dioxide 25 mmol/L (22-29) 06/28/21 04:39 Anion Gap 16.1 (5-19) 06/28/21 04:39 BUN 17 mg/dL (8-23) 06/28/21 04:39 Creatinine 1.0 mg/dL (0.7-1.2) 06/28/21 04:39 GFR Calculation Not Reportable 06/28/21 04:39 Glucose 95 mg/dL (65-115) 06/28/21 04:39 POC Glucose 119 mg/dL (70-110) H 06/28/21 06:14 Estimat Average Glucose 131 06/28/21 04:39 Hemoglobin A1c 6.2 % (4.0-6.0) H 06/28/21 04:39 Calculated Osmolality 293 mOsm/kg (285-295) 06/28/21 04:39 Calcium 9.2 mg/dL (8.5-10.5) 06/28/21 04:39 Phosphorus 3.0 mg/dL (2.5-4.5) 06/28/21 04:39 Magnesium 1.7 mg/dL (1.7-2.3) 06/28/21 04:39 Iron 79 ug/dL (59-158) 06/27/21 12:59 TIBC 234 mcg/dl 06/27/21 12:59 % Saturation 33.7 % (20-50) 06/27/21 12:59 Unsat Iron Binding 155 ug/dL (112-347) 06/27/21 12:59 Total Bilirubin 0.8 mg/dL (0.15-1.2) 06/28/21 04:39 AST 19 U/L (0-40) 06/28/21 04:39 ALT 26 U/L (0-41) 06/28/21 04:39 Alkaline Phosphatase 65 IU/L (40-130) 06/28/21 04:39 Creatine Kinase 66 U/L (39-308) 06/27/21 10:49 Troponin T Baseline 9 ng/L (0-15) 06/27/21 10:49 Troponin T 120 Minute 8.49 ng/L (0-15) 06/27/21 12:59 Delta Troponin T -0.51 ABS# (0-10) L 06/27/21 12:59 Troponin T Hi Sens 6Hr 8.48 ng/L (0-15) 06/27/21 16:55 Troponin T Hi Sens 6Hr Delta -0.52 ng/L (0-12) L 06/27/21 16:55 NT-Pro-B Natriuret Pep 266 pg/mL (0-125) H 06/27/21 12:59 Total Protein 6.6 g/dL (6.6-8.7) 06/28/21 04:39 Albumin 4.3 g/dL (3.5-5.2) 06/28/21 04:39 Globulin 2.3 g/dL (1.3-4.6) 06/28/21 04:39 Triglycerides 201 mg/dL (0-150) H 06/28/21 04:39 Cholesterol 136 mg/dL (0-200) 06/28/21 04:39 LDL Cholesterol, Calc 47 mg/dL (50-129) L 06/28/21 04:39 Total VLDL Cholesterol 40 mg/dL (0-30) H 06/28/21 04:39 HDL Cholesterol 49 mg/dL (60-100) L 06/28/21 04:39 Cholesterol/HDL Ratio 2.78 mg/dL (1.0-5.00) 06/28/21 04:39 TSH 2.41 uIU/mL (0.27-4.20) 06/27/21 10:49 Urine Color Yellow (Yellow) 06/27/21 19:51 Urine Appearance Clear (CLEAR) 06/27/21 19:51 Urine pH 6.5 (5-7) 06/27/21 19:51 Ur Specific [place] 1.010 (1.005-1.030) 06/27/21 19:51 Urine Protein Neg (Negative) 06/27/21 19:51 Urine Glucose (UA) 4+ (Normal) H 06/27/21 19:51 Urine Ketones Negative (Negative) 06/27/21 19:51 Urine Blood Neg (Negative) 06/27/21 19:51 Urine Nitrate Negative (Negative) 06/27/21 19:51 Urine Bilirubin Neg (Negative) 06/27/21 19:51 Urine Urobilinogen Neg mg/dL (Negative) 06/27/21 19:51 Ur Leukocyte Esterase Negative (Negative) 06/27/21 19:51 A&P Assessment and plan (1) Chest pain: The patient symptoms may suggest an unstable anginal pattern. However he also has a pleuritic component for the chest pain. Overall his frequency of symptoms seems to be getting worse. He had cardiac catheterization many years ago which revealed only mild coronary artery disease. In view of his ongoing worsening of the symptoms, in order to further evaluate the coronary status, especially in view of his multiple risk factors, a cardiac catheterization would be appropriate. I discussed this with the patient and his . The risk of bleeding, hematoma, vascular injury, myocardial infarction, CVA, renal failure and other concomitant complications were explained in detail. Patient understood this well. He would like to go ahead with the procedure. We will make the arrangements to have it done as early as possible Status: Acute Qualifiers: Chest pain type: chest pain due to myocardial ischemia Ischemic chest pain type: unstable angina pectoris Qualified Code(s): I20.0 - Unstable angina (2) Dyslipidemia: May continue on the current medications (3) Benign essential HTN: Currently normotensive. We will continue on the current medications. (4) Type 2 diabetes mellitus: I may hold off on the Metformin at the time. Qualifiers: Diabetes mellitus complication status: with hyperglycemia Diabetes mellitus salvage determiner insulin use: without salvage determiner use Qualified Code(s): E11.65 - Type 2 diabetes mellitus with hyperglycemia Additional A&P Information Based on the clinical progress and the results of the above, further management decisions will be made. Patient will be kept n.p.o. Attestations Medical Necessity Statement*: Disposition as per the primary Coding Level of Care Code Acute [employer] for g Fwd History Detailed Exam Detailed Medical Decision Making Moderate Complexity Diagnoses Chest pain I20.0 Chest pain type: chest pain due to myocardial ischemia Ischemic chest pain type: unstable angina pectoris Dyslipidemia E78.5 Benign essential HTN I10 Type 2 diabetes mellitus E11.65 Diabetes mellitus complication status: with hyperglycemia Diabetes mellitus residential insulin use: without residential use
--- NOTE | 2021-06-28 10:30 | XACV_ITS ---
Exam Room: [facility] Ht: 178 cm Wt: 90 kg BSA: 2.13 m2 Gender: Male : 1945 Any Known Allergies: Codeine Exam Priority: Routine Procedure(s): Procedure Description: Diagnostic procedure Procedure Description: Left Heart Catheterization Procedure Description: Left ventriculography Procedure Description: Coronary Angiography [place] WALL; Diagnostic Cath Status: Elective Diagnostic Findings * No disease noted in the Left Main, Left Anterior Descending, Right, or Circumflex coronary arteries. * Coronary angiography shows right dominance. * The left main is a medium caliber vessel with no significant stenotic lesions. * The left hand descending artery is a medium caliber vessel which was found to have mild diffuse intimal irregularities proximally. The distal artery was found to have around 50% segmental narrowing. The first diagonal branch was found to have around 50-60% proximal narrowing including the ostium. * The left circumflex artery is a medium caliber vessel which was found to have around 50% ostial narrowing. It gives off a high obtuse marginal branch-intermedius artery. This vessel is of relatively large caliber with minimal diffuse intimal irregularities. * The intermedius artery, relatively large caliber vessel with minimal diffuse intimal irregularities proximally. Then the artery appears to bifurcates distally. No significant stenotic lesions were noted.. * The right coronary artery is a medium caliber vessel with mild diffuse disease in the proximal and mid segment. No significant stenotic lesions were noted. Conclusions 1. 75-year-old white male with history of hypertension, type 2 diabetes, dyslipidemia is admitted to hospital with complaints of increasing episodes of chest pain. His symptoms were suggesting an unstable angina. He had a multiple ER visits and hospital admissions in the past for chest pains. In view of his multiple risk factors and ongoing worsening of his symptoms, in order to further evaluate his coronary status, a cardiac catheterization was recommended. Patient underwent left heart catheterization with a left and right coronary angiogram and LV angiogram today. The findings are as follows. 2. 50 to 60% tubular narrowing of the first diagonal branch of the left anterior descending artery, including the ostium. Around 50% distal LAD lesion. Mild diffuse disease in the other vessels. Normal LV ejection fraction of 65%. Features electrical diastolic dysfunction with an LVEDP of 26 mmHg. Recommendations * Continue current medical management and risk factor modification. Diagnostic RX Recommendation: medical therapy and/or counseling LV EDP: 26 mmHg Ventriculography Ejection Fraction: 65.0 % Left Ventriculography Findings: * The LV gram was performed in the DA SILVA position. The LV cavity appears to be normal size. There was no filling defect. No significant wall motion normalities. No significant mitral valve prolapse or mitral regurgitation. LVEDP was 26 mmHg. Pressures Phase:Rest AO : 118 / 59 ( 82 ) @ 9:21:00 AM 96 / 65 ( 76 ) @ 9:24:00 AM 118 / 58 ( 78 ) @ 9:27:00 AM 141 / 49 ( 94 ) @ 9:34:00 AM 139 / 45 ( 85 ) @ 9:35:00 AM LV : 148 / 2 / 31 @ 9:31:00 AM 138 / 0 / 26 @ 9:33:00 AM 137 / 3 / 23 @ 9:34:00 AM 136 / 4 / 23 @ 9:34:00 AM Valves Phase:DefaultPhase AV : 0.0 @ 11:42:37 AM AV Mean Gradient: 0.0 @ 11:42:37 AM Clinical Evaluation EBL: 5mL-10mL Procedural Details Pre-Procedure Time Out. Identified patient by full name and date of as verbalized by the patient/guarantor. Does the consent match the physician's order: Yes. Accurate & Complete Informed Consent: Yes. Inpatient/Outpatient History & Physical on Chart: Yes. If H&P is completed, is and addenduem needed: Yes; If yes, is the addendum complete: N/A. Visualize and Verify Site with Patient/Guarantor: N/A. Relevant Radiology Images available: Yes. Pre-op teaching completed and patient verbalized understanding. The risks, benefits, and alternatives of sedation and/or procedure were discussed by physician. The patient agrees to continue. Procedure started. [facility] Clinical Fraility Score: 3: Managing Well. Anesthesiology Faculty Indications: ACS > 24 hours. Chest Pain Symptom Assessment: Atypical Angina. Correct patient, site and procedure confirmed by cath team. Current diagnosis: NSTEMI. PERRLA. Strong, equal hand heat engineering teacher bilaterally. Lungs clear x 5 lobes. A 18 gauge IV was started in the right hand using aseptic technique. IV Fluids: 0.9% NaCl at KVO. 0 mL infused prior to mechanical shop laborer. Pre Procedural Pulses: bilateral dorsalis pedis was 1+. Pre Procedural Pulses: bilateral posterior tibial was 2+. Pre Procedural Pulses: bilateral radial was 2+. Oxygen started at 2liters/min via nasal canula. right groin was prepped with chloroprep then draped in the usual sterile fashion. right radial was prepped with chloroprep then draped in the usual sterile fashion. Baseline sample Acquired. HR: 82 BPM. Physician notified. Physician arrived. Physician scrubbed in. Immediate Pre-Procedure Time Out. Correct Patient: Yes; Correct Procedure: Yes; Correct Site: Yes; Correct Patient Position: Yes; Correct Supplies: Yes; Dried Flammable Prep: Yes; Blood Products Available: N/A;. Lidocaine 1% infiltrated to the right radial. Arterial access obtained. A 5 tristanian Eugenio catheter in over wire. Multiple views taken of left coronary artery. Catheter redirected to the RCA. Catheter removed over the exchange wire. A 5 tristanian JR4 catheter in over wire. Multiple views taken of right coronary artery. Catheter removed over the exchange wire. EDP Sample taken: LV 148/2,31; HR: 78 BPM; SpO2: 97%. Dr. Cheney here to review films. EDP Sample taken: LV 138/-1,26; HR: 83 BPM; SpO2: 96%. LV gram performed in DA SILVA @ 10 mL/second for a total of 30 mL. EDP Sample taken: LV 137/3,23; HR: 90 BPM; SpO2: 97%. Pullback taken: LV 136/4,23; AO 141/49(94); Mean: 0mmHg, Peak to Peak: 0mmHg, SEP: 7sec/min; HR: 83 BPM; SpO2: 97%. Catheter removed over the exchange wire. A TR Band was successful obtaining hemostatsis at the Right Radial artery insertion site. PERRLA. Strong, equal hand heat engineering teacher bilaterally. No VTE prophylaxis required. Medication's Wasted: Lidocaine 1% = 18 mL. Medication's Wasted: Heparin = 1000 units. Medication's Wasted: Other = Versed 1 mg. Medication's Wasted: Other = Fentanyl 50 mg. Medication's Wasted: Nitro = 49.8 mg. Total IV fluids: 270 mL. Contrast type used: Omnipaque 300 mgI/mL, 500 mL bottle. Complications: None. Estimated blood loss: 5mL-10mL. Responsiveness - Normal response to verbal stimuli; alert and oriented, PERRLA. Airway - Unaffected, no intervention required; spontaneous ventilation. Circulation: W/N/L, pulses unchanged. Nausea/Vomiting: No. Procedure completed. Patient transferred by bed to 1st floor. Vital chart was stopped. Access Site Site: Right Radial artery Sheath Size: 6 Fr Hemostasis Method: TR Band Hemostasis Success: Successful Procedure Medications Start: 11:10 AM Stop: 11:10 AM Medication: Versed Amount: 1 mg Route: I.V. Start: 11:10 AM Stop: 11:10 AM Medication: Fentanyl Amount: 50 mcg Route: I.V. Start: 11:18 AM Stop: 11:18 AM Medication: Verapamil Amount: 5 mg Route: I.A. Start: 11:18 AM Stop: 11:18 AM Medication: Nitrogylcerin Amount: 200 mcg Route: I.A. Start: 11:19 AM Stop: 11:19 AM Medication: 0.9% Saline Amount: ml Route: I.V. bolus Start: 11:21 AM Stop: 11:21 AM Medication: Heparin Amount: 5000 units Route: I.V. I, the attending physician, have reviewed and verified all procedure medications. Yes, all medications given per verbal order History/Risk Factors Hypertension: Yes Dyslipidemia: Yes Peripheral Arterial Disease (PAD): No Myocardial Infarction (MA): No Obesity: No Renal Disease: No Tobacco Use: Former Prior Interventions PCI: No CABG: No Valve Surgery: No Report Signatures Finalized by Dr Naldo Jarquin MD [facility] on 06/28/2021 04:19 PM
[2021-06-28] MEDS: sodium chloride 0.9% 1,000 ML 50 ML IV (10:50)
--- NOTE | 2021-06-28 10:59 | PC.NURSE ---
to catheter finisher and inspector
--- NOTE | 2021-06-28 11:42 | P.HPUD_ITS ---
Surgery/Procedure H&P Update DATE OF PROCEDURE: June 28, 2021 DATE H&P PERFORMED: 06/27/21 H&P UPDATE INFORMATION: I have reviewed H&P completed within last 30 days, I have examined patient prior to procedure and No changes to prior documentation PREOP DIAGNOSIS: ASHD with angina PRIMARY INDICATION FOR PROCEDURE: unstable anginal symptoms PLANNED PROCEDURE: [facility] with coronary angio and possible PCI PATIENT REASSESSED PRIOR TO SEDATION, WITH NO CHANGE NOTED: Yes PHYSICAL EXAM: alert, clear to auscultation bilaterally and regular rate & rhythm AIRWAY EVAL/ANESTHESIA PLAN: normal airway, see other exam findings, ASA II, Monitored Anesthesia, Local Anesthesia, Risks, benefits & alternatives of sedation and/or procedure discussed and Patient agrees to continue as planned
[2021-06-28] MEDS: sodium chloride 0.9% 1,000 ML 100 ML IV (12:00)
[2021-06-28 12:15] LABS: Glucose Point of Care 116 mg/dL (70-110)
--- NOTE | 2021-06-28 13:02 | P.DS_ITS ---
Discharge Providers Date of Admission: 06/27/21 13:24 Date of Discharge: June 28, 2021 Attending Provider at Admission: Keith Giron MD Attending Provider at Discharge: Keith Giron MD Consults: Cardiology: Dr. Jarquin Primary Care Provider: Aziza Marsh MD Diagnoses at Discharge Discharge Diagnosis (1) Chest pain: Status: Acute Qualifiers: Chest pain type: chest pain due to myocardial ischemia Ischemic chest pain type: unstable angina pectoris Qualified Code(s): I20.0 - Unstable angina (2) Dyslipidemia: Status: Acute (3) Benign essential HTN: Status: Acute (4) Type 2 diabetes mellitus: Status: Acute Qualifiers: Diabetes mellitus senior care insulin use: without production machinist use Diabetes mellitus complication status: with hyperglycemia Qualified Code(s): E11.65 - Type 2 diabetes mellitus with hyperglycemia Reason for Visit Reason for Visit: CHEST PAIN Hospital Course Hospital Course Beka Hung is a 75 year old male with history of type 2 diabetes mellitus, CAD, dyslipidemia, hypertension, former smoker who follows up with Dr. Jarquin as an outpatient and last seen in his office on 04/24 who presents to the ER today with chest pain that has been going on since 6 AM. Patient states usually has chest pain once every couple of weeks and it goes away with 1 or 2 nitros but it did not go away today. Patient complains of left retrosternal chest pain radiating to the neck. Patient states sometimes the pain goes from shoulder to shoulder up sometimes to neck today it went to the neck. Denies any nausea, vomiting, headache. He states usually has difficulty in breathing with exertion which has been going on for last couple of years. He states he last spoke with Dr. Jarquin a month ago and plan was to do a cardiac angiogram as an outpatient. Patient went to the hospital for further evaluation of atypical chest pain. Cardiology was consulted. He underwent cardiac catheterization on 06/28 which is consistent with nonobstructive CAD. Elevated LVEDP to 26(complete cath report not currently available.) His cardiac medications were further adjusted. He tolerated the procedure well. Echocardiogram was done which showed an EF of 68%, mild LVH, no regional wall motion normality, trace TR without any significant change in echocardiogram as compared to last study from 2018. Atypical chest pain is most likely secondary to a combination of costochondritis and possible pleuritis. He is been discharged in hemodynamically stable condition on oral medications as before other than increasing metoprolol to 25 mg twice daily. He is advised to follow-up nurse practitioner with cardiology within [address] Jarquin in 1 month. Physical Exam Narrative: EXAM NARRATIVE: General: No acute distress, AO x3 HEENT: PERRLA, pupils bilaterally equal and reactive Chest: Normal vesicular breath sounds, no added sounds, equal good air entry bilaterally CVS: S1-S2 regular, no murmurs, no tachycardia, no gallops, no rubs Abdomen: Soft, nontender, no organomegaly, bowel sounds present Neuro: No focal deficits, no facial deformity, AO x3, power 5/5 in all limbs Discharge Data Data Completed and Pending: Completed Studies During Hospitalization Category Date Time Status XR chest 1V roshni ble [id number] Stat Exams 06/27/21 11:19 Completed CV. echo complete * [id number] Routine Ultrasound 06/27/21 13:32 Completed Pending at discharge Category Date Time Status AMPHIBIOUS OPERATIONS OFFICER request for service Routin e Exams 06/28/21 10:30 Taken Labs from last 24 hours 06/28/21 06/28/21 06/28/21 12:12 06:14 04:39 WBC RBC Hgb Hct MCV MCH MCHC RDW Plt Count MPV Neut % (Auto) Lymph % (Auto) [place] % (Auto) Eos % (Auto) Baso % (Auto) Neut # (Auto) Lymph # (Auto) [place] # (Auto) Eos # (Auto) Baso # (Auto) Nucleated RBC % (a uto) Nucleated RBCs # D-Dimer Sodium Potassium Chloride Carbon Dioxide Anion Gap BUN Creatinine GFR Calculation Glucose POC Glucose 116 H 119 H Estimat Average Gl ucose Hemoglobin A1c Calculated Osmolal ity Calcium Phosphorus Magnesium Iron TIBC % Saturation Unsat Iron Binding Total Bilirubin AST ALT Alkaline Phosphata se Troponin T 120 Min igiugig Delta Troponin T Troponin T Hi Sens 6Hr Troponin T Hi Sens 6Hr Delta NT-Pro-B Natriuret Pep Total Protein Albumin Globulin Triglycerides 201 H Cholesterol 136 LDL Cholesterol, C alc 47 L Total VLDL Cholest casandra 40 H HDL Cholesterol 49 L Cholesterol/HDL Ra ofelia 2.78 TSH Urine Color Urine Appearance Urine pH Ur Specific Gravit y Urine Protein Urine Glucose (UA) Urine Ketones Urine Blood Urine Nitrate Urine Bilirubin Urine Urobilinogen Ur Leukocyte Soraida ase 06/28/21 06/28/2121 04:39 04:39 04:39 WBC 5.0 RBC 4.79 Hgb 15.7 Hct 45.3 MCV 94.6 H MCH 32.8 MCHC 34.7 RDW 12.4 Plt Count 149 MPV 10.5 H Neut % (Auto) 57.2 Lymph % (Auto) 30.5 [place] % (Auto) 9.7 Eos % (Auto) 2.0 Baso % (Auto) 0.4 Neut # (Auto) 2.83 Lymph # (Auto) 1.5 [place] # (Auto) 0.5 Eos # (Auto) 0.1 Baso # (Auto) 0.0 Nucleated RBC % (a uto) 0 Nucleated RBCs # 0.0 D-Dimer Sodium 141 Potassium 4.1 Chloride 104 Carbon Dioxide 25 Anion Gap 16.1 BUN 17 Creatinine 1.0 GFR Calculation Not Reportable Glucose 95 POC Glucose Estimat Average Gl ucose 131 Hemoglobin A1c 6.2 H Calculated Osmolal ity 293 Calcium 9.2 Phosphorus 3.0 Magnesium 1.7 Iron TIBC % Saturation Unsat Iron Binding Total Bilirubin 0.8 AST 19 ALT 26 Alkaline Phosphata se 65 Troponin T 120 Min igiugig Delta Troponin T Troponin T Hi Sens 6Hr Troponin T Hi Sens 6Hr Delta NT-Pro-B Natriuret Pep Total Protein 6.6 Albumin 4.3 Globulin 2.3 Triglycerides Cholesterol LDL Cholesterol, C alc Total VLDL Cholest casandra HDL Cholesterol Cholesterol/HDL Ra ofelia TSH Urine Color Urine Appearance Urine pH Ur Specific Gravit y Urine Protein Urine Glucose (UA) Urine Ketones Urine Blood Urine Nitrate Urine Bilirubin Urine Urobilinogen Ur Leukocyte Soraida ase 06/27/21 06/27/21 06/27/21 20:03 19:51 17:23 WBC RBC Hgb Hct MCV MCH MCHC RDW Plt Count MPV Neut % (Auto) Lymph % (Auto) [place] % (Auto) Eos % (Auto) Baso % (Auto) Neut # (Auto) Lymph # (Auto) [place] # (Auto) Eos # (Auto) Baso # (Auto) Nucleated RBC % (a uto) Nucleated RBCs # D-Dimer Sodium Potassium Chloride Carbon Dioxide Anion Gap BUN Creatinine GFR Calculation Glucose POC Glucose 123 H 110 Estimat Average Gl ucose Hemoglobin A1c Calculated Osmolal ity Calcium Phosphorus Magnesium Iron TIBC % Saturation Unsat Iron Binding Total Bilirubin AST ALT Alkaline Phosphata se Troponin T 120 Min igiugig Delta Troponin T Troponin T Hi Sens 6Hr Troponin T Hi Sens 6Hr Delta NT-Pro-B Natriuret Pep Total Protein Albumin Globulin Triglycerides Cholesterol LDL Cholesterol, C alc Total VLDL Cholest casandra HDL Cholesterol Cholesterol/HDL Ra ofelia TSH Urine Color Yellow Urine Appearance Clear Urine pH 6.5 Ur Specific Gravit y 1.010 Urine Protein Neg Urine Glucose (UA) 4+ H Urine Ketones Negative Urine Blood Neg Urine Nitrate Negative Urine Bilirubin Neg Urine Urobilinogen Neg Ur Leukocyte Soraida ase Negative 06/27/21 06/27/21 06/27/21 16:55 12:59 12:59 WBC RBC Hgb Hct MCV MCH MCHC RDW Plt Count MPV Neut % (Auto) Lymph % (Auto) [place] % (Auto) Eos % (Auto) Baso % (Auto) Neut # (Auto) Lymph # (Auto) [place] # (Auto) Eos # (Auto) Baso # (Auto) Nucleated RBC % (a uto) Nucleated RBCs # D-Dimer Sodium Potassium Chloride Carbon Dioxide Anion Gap BUN Creatinine GFR Calculation Glucose POC Glucose Estimat Average Gl ucose Hemoglobin A1c Calculated Osmolal ity Calcium Phosphorus Magnesium Iron 79 TIBC 234 % Saturation 33.7 Unsat Iron Binding 155 Total Bilirubin AST ALT Alkaline Phosphata se Troponin T 120 Min igiugig 8.49 Delta Troponin T -0.51 L Troponin T Hi Sens 6Hr 8.48 Troponin T Hi Sens 6Hr Delta -0.52 L NT-Pro-B Natriuret Pep 266 H Total Protein Albumin Globulin Triglycerides Cholesterol LDL Cholesterol, C alc Total VLDL Cholest casandra HDL Cholesterol Cholesterol/HDL Ra ofelia TSH Urine Color Urine Appearance Urine pH Ur Specific Gravit y Urine Protein Urine Glucose (UA) Urine Ketones Urine Blood Urine Nitrate Urine Bilirubin Urine Urobilinogen Ur Leukocyte Soraida ase 06/27/21 06/27/21 10:49 10:49 WBC RBC Hgb Hct MCV MCH MCHC RDW Plt Count MPV Neut % (Auto) Lymph % (Auto) [place] % (Auto) Eos % (Auto) Baso % (Auto) Neut # (Auto) Lymph # (Auto) [place] # (Auto) Eos # (Auto) Baso # (Auto) Nucleated RBC % (a uto) Nucleated RBCs # D-Dimer 0.36 Sodium Potassium Chloride Carbon Dioxide Anion Gap BUN Creatinine GFR Calculation Glucose POC Glucose Estimat Average Gl ucose Hemoglobin A1c Calculated Osmolal ity Calcium Phosphorus Magnesium Iron TIBC % Saturation Unsat Iron Binding Total Bilirubin AST ALT Alkaline Phosphata se Troponin T 120 Min ig[place] Delta Troponin T Troponin T Hi Sens 6Hr Troponin T Hi Sens 6Hr Delta NT-Pro-B Natriuret Pep Total Protein Albumin Globulin Triglycerides Cholesterol LDL Cholesterol, C alc Total VLDL Cholest casandra HDL Cholesterol Cholesterol/HDL Ra ofelia TSH 2.41 Urine Color Urine Appearance Urine pH Ur Specific Gravit y Urine Protein Urine Glucose (UA) Urine Ketones Urine Blood Urine Nitrate Urine Bilirubin Urine Urobilinogen Ur Leukocyte Soraida ase Addt'l Data from Hospital Stay: Laboratory Results WBC 5.0 10^3/uL (4.0- 10.0) 06/28/21 04:39 RBC 4.79 10^6/uL (4.1 -5.3) 06/28/21 04:39 Hgb 15.7 g/dL (11.7-1 6.6) 06/28/21 04:39 Hct 45.3 % (42.0-52.0 ) 06/28/21 04:39 MCV 94.6 fl (80-94) H 06/28/21 04:39 MCH 32.8 pg (28.0-34. 0) 06/28/21 04:39 MCHC 34.7 g/dL (30.0-3 6.0) 06/28/21 04:39 RDW 12.4 % (12.1-15.1 ) 06/28/21 04:39 Plt Count 149 10^3/cmm (130 -400) 06/28/21 04:39 MPV 10.5 fL (7.4-10.4 ) H 06/28/21 04:39 Neut % (Auto) 57.2 % 06/28/21 04:39 Lymph % (Auto) 30.5 % 06/28/21 04:39 [place] % (Auto) 9.7 % 06/28/21 04:39 Eos % (Auto) 2.0 % 06/28/21 04:39 Baso % (Auto) 0.4 % 06/28/21 04:39 Neut # (Auto) 2.83 10^3/uL (1.8 -7.7) 06/28/21 04:39 Lymph # (Auto) 1.5 10^3/uL (0.8- 4.8) 06/28/21 04:39 [place] # (Auto) 0.5 10^3/uL (0.2- 0.9) 06/28/21 04:39 Eos # (Auto) 0.1 10^3/uL (0.0- 0.8) 06/28/21 04:39 Baso # (Auto) 0.0 10^3/uL (0.0- 0.1) 06/28/21 04:39 Nucleated RBC % (a uto) 0 % 06/28/21 04:39 Nucleated RBCs # 0.0 /100WBC 06/28/21 04:39 D-Dimer 0.36 ug/mIFEU (0- 0.59) 06/27/21 10:49 Sodium 141 mmol/L (136-1 45) 06/28/21 04:39 Potassium 4.1 mmol/L (3.5-5 .1) 06/28/21 04:39 Chloride 104 mmol/L (98-10 7) 06/28/21 04:39 Carbon Dioxide 25 mmol/L (22-29) 06/28/21 04:39 Anion Gap 16.1 (5-19) 06/28/21 04:39 BUN 17 mg/dL (8-23) 06/28/21 04:39 Creatinine 1.0 mg/dL (0.7-1. 2) 06/28/21 04:39 GFR Calculation Not Reportable 06/28/21 04:39 Glucose 95 mg/dL (65-115) 06/28/21 04:39 POC Glucose 116 mg/dL (70-110 ) H 06/28/21 12:12 Estimat Average Gl ucose 131 06/28/21 04:39 Hemoglobin A1c 6.2 % (4.0-6.0) H 06/28/21 04:39 Calculated Osmolal ity 293 mOsm/kg (285- 295) 06/28/21 04:39 Calcium 9.2 mg/dL (8.5-10 .5) 06/28/21 04:39 Phosphorus 3.0 mg/dL (2.5-4. 5) 06/28/21 04:39 Magnesium 1.7 mg/dL (1.7-2. 3) 06/28/21 04:39 Iron 79 ug/dL (59-158) 06/27/21 12:59 TIBC 234 mcg/dl 06/27/21 12:59 % Saturation 33.7 % (20-50) 06/27/21 12:59 Unsat Iron Binding 155 ug/dL (112-34 7) 06/27/21 12:59 Total Bilirubin 0.8 mg/dL (0.15-1 .2) 06/28/21 04:39 AST 19 U/L (0-40) 06/28/21 04:39 ALT 26 U/L (0-41) 06/28/21 04:39 Alkaline Phosphata se 65 IU/L (40-130) 06/28/21 04:39 Creatine Kinase 66 U/L (39-308) 06/27/21 10:49 Troponin T Baselin e 9 ng/L (0-15) 06/27/21 10:49 Troponin T 120 Min igiugig 8.49 ng/L (0-15) 06/27/21 12:59 Delta Troponin T -0.51 ABS# (0-10) L 06/27/21 12:59 Troponin T Hi Sens 6Hr 8.48 ng/L (0-15) 06/27/21 16:55 Troponin T Hi Sens 6Hr Delta -0.52 ng/L (0-12) L 06/27/21 16:55 NT-Pro-B Natriuret Pep 266 pg/mL (0-125) H 06/27/21 12:59 Total Protein 6.6 g/dL (6.6-8.7 ) 06/28/21 04:39 Albumin 4.3 g/dL (3.5-5.2 ) 06/28/21 04:39 Globulin 2.3 g/dL (1.3-4.6 ) 06/28/21 04:39 Triglycerides 201 mg/dL (0-150) H 06/28/21 04:39 Cholesterol 136 mg/dL (0-200) 06/28/21 04:39 LDL Cholesterol, C alc 47 mg/dL (50-129) L 06/28/21 04:39 Total VLDL Cholest casandra 40 mg/dL (0-30) H 06/28/21 04:39 HDL Cholesterol 49 mg/dL (60-100) L 06/28/21 04:39 Cholesterol/HDL Ra ofelia 2.78 mg/dL (1.0-5 .00) 06/28/21 04:39 TSH 2.41 uIU/mL (0.27 -4.20) 06/27/21 10:49 Urine Color Yellow (Yellow) 06/27/21 19:51 Urine Appearance Clear (CLEAR) 06/27/21 19:51 Urine pH 6.5 (5-7) 06/27/21 19:51 Ur Specific Gravit y 1.010 (1.005-1.0 30) 06/27/21 19:51 Urine Protein Neg (Negative) 06/27/21 19:51 Urine Glucose (UA) 4+ (Normal) H 06/27/21 19:51 Urine Ketones Negative (Negati ve) 06/27/21 19:51 Urine Blood Neg (Negative) 06/27/21 19:51 Urine Nitrate Negative (Negati ve) 06/27/21 19:51 Urine Bilirubin Neg (Negative) 06/27/21 19:51 Urine Urobilinogen Neg mg/dL (Negati ve) 06/27/21 19:51 Ur Leukocyte Soraida ase Negative (Negati ve) 06/27/21 19:51 Impressions Chest X-Ray 06/27/21 11:19 Impression: Atherosclerosis. Echocardiogram: CONCLUSIONS Normal left ventricular size and systolic function, EF 68 %. Mild left ventricular hypertrophy. No regional wall motion abnormalities. Thickened aortic valve. Trace tricuspid valve regurgitation. There is no pericardial effusion. There are no intracardiac masses. Compared to the study from 01/18/2018, there is no significant change in the 2D findings Dr Naldo Jarquin MD [facility] (Electronically Signed) Final Date: 27 June 2021 19:35 Vitals: Last Vital Signs Temp 98.2 F 06/28/21 03:08 Pulse 75 06/28/21 08:37 Resp 23 H 06/28/21 03:08 BP 131/67 06/28/21 08:37 Pulse Ox 93 06/28/21 03:08 Discharge Plan Discharge Patient Disposition: Home Condition: Stable Prescriptions: New calcium carbonate 200 mg calcium (500 mg) Tablet,Chewable 1,000 mg PO Q4H PRN (Reason: DYSPEPSI) Qty: 30 RF: 0 Continued pantoprazole 40 mg tablet,delayed release (DR/EC) 40 mg PO QAM RF: 0 finasteride 5 mg tablet 5 mg PO QAM RF: 0 tamsulosin [Flomax] 0.4 mg capsule 0.4 mg PO QPM RF: 0 empagliflozin 25 mg tablet 25 mg PO QAM RF: 0 nifedipine 30 mg tablet extended release 30 mg PO QAM RF: 0 isosorbide mononitrate 120 mg tablet extended release 24 hr 120 mg PO QAM RF: 0 atorvastatin 40 mg tablet 40 mg PO BEDTIME RF: 0 valsartan 160 mg tablet 80 mg PO BEDTIME RF: 0 gabapentin 300 mg capsule 300 mg PO BID RF: 0 nitroglycerin [Nitrostat] 0.4 mg Tablet, Sublingual 0.4 mg SUBLINGUAL Q5M PRN (Reason: Chest Pain) RF: 0 Aspir-81 81 mg Tablet,Delayed Release (Dr/Ec) 81 mg PO QAM RF: 0 Flonase 50 mcg/actuation [place],Suspension 1 spray INTRANASAL DAILY PRN (Reason: Allergy Symptoms) RF: 0 Vitamin D3 25 mcg (1,000 unit) Tablet 3,000 unit PO QAM RF: 0 Changed metoprolol tartrate 25 mg Tablet 25 mg PO BID Qty: 0 RF: 0 Discontinued metformin 500 mg tablet 250 mg PO BID RF: 0 Discharge Orders: Discharge Order (Routine); Ordered 06/28/21 Ordered By: Keith Giron Referrals: Naldo Jarquin MD [Physician] - 1 month Aziza Marsh MD [Primary Care Provider] - 2 weeks Tayla Morales FNP [Nurse Practitioner] - 4-7 days Discharge Diet: Cardiac and Diabetic Discharge Activity: Resume usual activity Patient Instructions: Opioid Safety Activity Restrictions/Additional Instructions: Please follow-up with cardiology within next 1 week with nurse practitioner and with Dr. Jarquin within next 1 month. Please take metoprolol 25 mg twice daily. Discharge Attestations Time Spent in Discharge Care*: greater than 30 min Specific Discharge Activities: educating patient, educating and/or supporting family/caregiver, discussing with pcp/other providers, discussing with disease case manager/social workers/dc planners, documenting/other paperwork and evaluating patient/reviewing data Status at Discharge: Cognitive status at discharge: cognitively intact , Behavioral status at discharge: cooperative , Functional status at discharge: independent ambulation Overall status at discharge: patient is back to baseline Quality Metrics Clinical Quality Measures During this hospital stay, did patient experience: None Coding Level of Care Code Acute Chg FW DC note Diagnoses Chest pain I20.0 Chest pain type: chest pain due to myocardial ischemia Ischemic chest pain type: unstable angina pectoris Dyslipidemia E78.5 Benign essential HTN I10 Type 2 diabetes mellitus E11.65 Diabetes mellitus senior care insulin use: without senior care use Diabetes mellitus complication status: with hyperglycemia
--- NOTE | 2021-06-28 13:02 | PC.CHAP ---
Pastoral Care Encounter/Spiritual Assessment Type of Contact [] Declined mold sander visit [] Patient/Family/Request visit [] Outpatient visit [] Follow-up visit [] Physician referral [] Code/Alert [] Routine visit [] Staff referral [] Actively dying [] Patient sleeping [] Family support [] [] Out of room [] Palliative care [] [xx] Receiving care in room [] Pre-surgical visit [] Trauma [] Long length of stay [] ICU visit [] Other: Relational/Emotional Strength [] Patient feels connected with others/family/visitors/staff [] Distress [] Loneliness/isolation [] Abandonment Spirituality of Patient [] Person of Stacie [] Attends Scientologist of their Stacie [] Believes in Prayer [] Reads Bible or Islam materials [] There are Spiritual issues to be addressed Goal Umpire Interventions [] Prayer [] Active listening [] Non-anxious presence [] Spiritual/emotional support [] Crisis/trauma care [] Spiritual counseling [] Bereavement support [] Provided bereavement packet [] Provided Bible/devotional materials [] Provided toy/stuffed animal, coloring book to patient or family member [] Provided Communion [] Anointing/[place] [] Salvation [] Completed spiritual assessment [] Other: Impact on Illness or Injury [] Angry [] Fearful [] Anxious [] Often cries [] Exhaustion [] Unable to work [] Unable to attend jew [] Unable to walk/stand [] Unable to read [] Unable to drive [] Unable to eat/drink [] Unable to sleep [] Unable to be with family [] Patient intubated [] Other: Summary Patient was being prepared for a procedure Follow up later Time spent with patient
== END 2021-06-28 17:30 | disposition home or self-care (01) ==
LOC: ER 13:35 → CSU 14:04
PROVIDERS: Internal Medicine Cardiovascular Disease; Admitting Provider Student in an Organized Health Care Education/Training Program; Emergency Provider Family Medicine; PCP Family Medicine; Visit Provider Student in an Organized Health Care Education/Training Program
DX: I25.110 Atherosclerotic heart disease of native coronary artery with unstable angina pectoris (principal); E78.5 Hyperlipidemia, unspecified; I10 Essential (primary) hypertension; E11.65 Type 2 diabetes mellitus with hyperglycemia; Z87.891 Personal history of nicotine dependence; E66.9 Obesity, unspecified; Z68.28 Body mass index [BMI] 28.0-28.9, adult; Z79.84 Long term (current) use of oral hypoglycemic drugs
CPT/HCPCS: 36415; 36416; 71045; 80053; 80061; 81003; 82550; 82962; 83036; 83540; 83550; 83735; 83880; 84100; 84443; 84484; 85025; 85378; 93005; 93306; 93452; 96360; 96372; 99285; C1769; C1887; C1894; G0378; J1644; J1650; J2250; J3010; J3490; J7030; Q9967

== ENCOUNTER → 2021-07-08 14:05 | Outpatient (BNVA) | payer OTHER, SELFPAY | PROVIDERS: PCP Family Medicine; Visit Provider Nurse Practitioner Family | DX: Z09 Encounter for follow-up examination after completed treatment for conditions other than malignant neoplasm (principal); I25.10 Atherosclerotic heart disease of native coronary artery without angina pectoris | CPT/HCPCS: 80048 ==

== ENCOUNTER 2022-01-08 12:24 | Outpatient (CLI) | payer OTHER, SELFPAY ==
--- NOTE | 2022-01-08 12:35 | US_ITS ---
WS: [id number] RENAL ULTRASOUND HISTORY: STAGE 3A CHRONIC KIDNEY DZ COMPARISON: None available. TECHNIQUE: 2-D and color Doppler imaging of the kidney submitted. Right kidney: 11.3 cm x 5.8 cm x 6.7 cm. Normal size kidney but there is increased echogenicity. No mass identified. Left kidney: 11.0 cm x 5.5 cm x 6.1 cm. Normal size kidney with increased echogenicity. Mild hydronephrosis. Small amount of free fluid adjac ent to the LEFT kidney. Aorta: Normal. Urinary Bladder: Normally distended urinary bladder. No intraluminal filling defect. Prostate is encr oaching into the base of the bladder. Prostate is mildly heterogeneous but not significantly enlarged . US/US renal BI* [id number] IMPRESSION: 1. Mild LEFT hydronephrosis. 2. Mild bilateral chronic medical renal disease with no renal atrophy. 3. No solid mass.
== END 2022-01-08 12:25 | disposition home or self-care (01) ==
LOC: RAD 12:25
PROVIDERS: PCP Family Medicine; Visit Provider Internal Medicine Nephrology
DX: N18.31 Chronic kidney disease, stage 3a (principal); N13.30 Unspecified hydronephrosis
CPT/HCPCS: 76770

== ENCOUNTER → 2022-02-18 09:36 | Outpatient (BNVA) | payer OTHER, SELFPAY | PROVIDERS: PCP Family Medicine; Visit Provider Internal Medicine Cardiovascular Disease | DX: I25.118 Atherosclerotic heart disease of native coronary artery with other forms of angina pectoris (principal); E78.5 Hyperlipidemia, unspecified; I10 Essential (primary) hypertension; Z87.891 Personal history of nicotine dependence | CPT/HCPCS: 99214 ==

== ENCOUNTER → 2022-03-17 07:47 | Outpatient (BNVA) | payer OTHER, SELFPAY | PROVIDERS: PCP Family Medicine; Visit Provider Podiatrist Foot & Ankle Surgery | DX: B07.9 Viral wart, unspecified (principal); Q82.8 Other specified congenital malformations of skin; M20.41 Other hammer toe(s) (acquired), right foot; M20.42 Other hammer toe(s) (acquired), left foot; L84 Corns and callosities; E11.21 Type 2 diabetes mellitus with diabetic nephropathy | CPT/HCPCS: 17110; 99204 ==

== ENCOUNTER 2022-03-19 06:04 | Outpatient (CLI) | payer OTHER, SELFPAY ==
--- NOTE | 2022-03-19 | USCV_ITS ---
Beka Hung Age: 76 Gender: M : 1945 Exam Date: 03/19/2022 06:16 Ordering Phys: Aziza Marsh MD Technologist: LUBA [place]am [place] [facility] [place]: AAA SCREENING HISTORY: Diameter (cm) AP x Transverse x Length Velocity (cm/s) Waveform Prox Aorta: 2.42 x 2.60 x 106.60 Triphasic Mid Aorta: 2.26 x 2.17 x 148.20 Triphasic Distal Aorta: 1.72 x 1.86 x 96.70 Triphasic Right Iliac Prox: 1.14 x 1.21 x 96.70 Triphasic Left Iliac Prox: 1.26 x 1.21 x 136.40 Triphasic Stent Prox Landing x x Aneurysmal Sac Max x x Lt Lat Sac Dim Rt Lat Sac Dim Stent Dist Landing x x Right Iliac Stent x x Left Iliac Stent x x Right Renal Art Left Renal Art FINDINGS: Comparison: none available. No evidence of abdominal aortic aneurysm. Atherosclerotic plaque is noted in the abdominal aorta. There is evidence of atherosclerotic plaque no significan stenosis in the right common iliac artery. There is evidence of atherosclerotic plaque no significan stenosis in the left common iliac artery. CONCLUSIONS No evidence of abdominal aortic aneurysm. Dr. Hillary Lepe DO (Electronically Signed) Final Date: 19 March 2022 07:34 S
== END 2022-03-19 06:05 | disposition home or self-care (01) ==
LOC: RAD 06:05
PROVIDERS: PCP Family Medicine; Visit Provider Family Medicine
DX: Z13.6 Encounter for screening for cardiovascular disorders (principal)
CPT/HCPCS: 76706

== ENCOUNTER 2022-04-04 08:48 | Outpatient (CLI) | payer OTHER, SELFPAY ==
[2022-04-04 09:21] LABS: Add Urine Microscopic? NO; Charge for UA Resulting for Rev
[2022-04-04 09:25] LABS: Protein Urine Neg (Negative); Urine Appearance Clear (CLEAR); Urine Color Yellow (Yellow); pH Urine 5 (5-7)
[2022-04-04 09:26] LABS: Bilirubin Urine Neg (Negative); Blood Urine Neg (Negative); Glucose Urine UA 4+ (Normal); Ketones Urine 1+ (Negative); Leukocyte Esterase Urine Negative (Negative); Nitrate Urine Negative (Negative); Urobilinogen Urine Neg (Negative)
[2022-04-04 09:44] LABS: Alanine Aminotransferase 23 U/L (0-41); Albumin Level 4.2 g/dL (3.5-5.2); Alkaline Phosphatase 81 U/L (40-130); Anion Gap 13.5 (5-19); Aspartate Amino Transferase 22 U/L (0-40); Blood Urea Nitrogen 27 mg/dL (8-23); Calcium 9.6 mg/dL (8.5-10.5); Carbon Dioxide 26 mmol/L (22-29); Chloride 104 mmol/L (98-107); Globulin 2.8 g/dL (1.3-4.6); Glucose 139 mg/dL (65-115); Osmolality Calculated 295 mOsm/kg (285-295); Potassium 4.5 mmol/L (3.5-5.1); Sodium 139 mmol/L (136-145)
== END 2022-04-04 08:49 | disposition home or self-care (01) ==
LOC: LAB 08:49
PROVIDERS: PCP Family Medicine; Visit Provider Chiropractor
DX: E11.9 Type 2 diabetes mellitus without complications (principal)
CPT/HCPCS: 36415; 80053; 81003

== ENCOUNTER 2022-04-09 10:21 | Outpatient (CLI) | payer OTHER, SELFPAY ==
--- NOTE | 2022-04-09 | CT_ITS ---
WS: [id number] CT ABDOMEN AND PELVIS NONCONTRAST HISTORY: CHRONIC KIDNEY DISEASE TECHNIQUE: Imaging performed through the abdomen and pelvis. Coronal and sagittal reformats are submi tted. All CT scans at [facility] use at least one of these dose optimization techniques: auto mated exposure control; mA and/or kV adjustment per patient size (includes targeted exams where dose is matched to clinical indication); or iterative reconstruction. DLP: 1155.44 mGy.cm COMPARISON: 02/26/2017 Lower thorax: 8 mm nodule subpleural medial LEFT lower lobe. Normal size heart. Small hiatal hernia. Liver: Normal size liver. No mass or bile duct dilatation. Gallbladder: Normal gallbladder. Pancreas: Normal size and attenuation. Normal pancreatic duct. No pancreatitis or mass. Spleen: Normal. Adrenal glands: Normal. No mass. Right kidney: Mild perinephric stranding. Low-attenuation masses in the renal pelvis. There is very s light medullary dilatation. Beyond the renal pelvis there is no obstruction or dilatation of the uret er. There may be very slight dilatation of the renal pelvis. Favor these changes are probably due to parapelvic cysts. Left kidney: Very minimal fullness of the LEFT renal pelvis and parapelvic cysts. Small parapelvic cy sts were also noted on a prior CT from 2017. There is no ureteral dilatation. Mild perinephric strand ing. Aorta: Mild atherosclerosis abdominal aorta with no aneurysm. No free fluid, intraperitoneal air or significant lymphadenopathy. GI tract: Normally distended stomach. No small bowel obstruction. Normal appendix. Distal colon diver ticular disease without acute diverticulitis. Abdominal wall: Negative. No hernia. Pelvis: Well-distended bladder. Very minimal prostate gland encroachment into the bladder. Osseous structures: Unremarkable. CT/CT abdomen pelvis wo con [id number] IMPRESSION: 1. Fullness in the renal pelves bilaterally. Favor the fullness is probably re lated to parapelvic cysts and not a significant hydronephrosis. Similar finding s present in 2017 with progression of the parapelvic cysts. No ureteral dilatat ion. 2. 8mm subpleural medial LEFT lower lobe pulmonary nodule. Recommend follow-up CT in 6 months to evaluate for growth or change. 3. Mild perinephric stranding around each kidney. 4. Distal colonic diverticulosis without acute diverticulitis.
== END 2022-04-09 10:22 | disposition home or self-care (01) ==
LOC: RAD 10:21
PROVIDERS: PCP Family Medicine; Visit Provider Family Medicine
DX: N18.9 Chronic kidney disease, unspecified (principal); K57.30 Diverticulosis of large intestine without perforation or abscess without bleeding; R91.1 Solitary pulmonary nodule
CPT/HCPCS: 74150; 74176

== ENCOUNTER → 2022-04-15 07:51 | Outpatient (BNVA) | payer OTHER, SELFPAY | PROVIDERS: PCP Family Medicine; Visit Provider Podiatrist Foot & Ankle Surgery | DX: Q82.8 Other specified congenital malformations of skin (principal); M20.41 Other hammer toe(s) (acquired), right foot; M20.42 Other hammer toe(s) (acquired), left foot; L84 Corns and callosities; E11.21 Type 2 diabetes mellitus with diabetic nephropathy | CPT/HCPCS: 17110 ==

== ENCOUNTER → 2022-05-12 07:53 | Outpatient (BNVA) | payer OTHER, SELFPAY | PROVIDERS: PCP Family Medicine; Visit Provider Podiatrist Foot & Ankle Surgery | DX: L84 Corns and callosities (principal); Q82.8 Other specified congenital malformations of skin; M20.41 Other hammer toe(s) (acquired), right foot; M20.42 Other hammer toe(s) (acquired), left foot; E11.21 Type 2 diabetes mellitus with diabetic nephropathy | CPT/HCPCS: 99214 ==

== ENCOUNTER → 2022-06-05 13:28 | Outpatient (BNVA) | payer OTHER, SELFPAY | PROVIDERS: PCP Family Medicine; Visit Provider Urology | DX: N28.1 Cyst of kidney, acquired (principal); N20.9 Urinary calculus, unspecified | CPT/HCPCS: 81003; 99203 ==

== ENCOUNTER 2022-08-01 07:03 | Outpatient (CLI) | payer OTHER, SELFPAY ==
--- NOTE | 2022-08-01 | CTR_ITS ---
PROCEDURE INFORMATION: Exam: CT Chest With Contrast; Diagnostic Exam date and time: 08/01/2022 7:57 AM Age: 76 years old Clinical indication: Condition or disease; Lung condition and disease; Pulmonary nodule, solitary; Patient HX: 8mm subpleural medial left lower lobe pulmonary nodule; Additional info: F/u pulm nodule TECHNIQUE: Imaging protocol: Diagnostic computed tomography of the chest with contrast. Radiation optimization: All CT scans at this facility use at least one of these dose optimization techniques: automated exposure control; mA and/or kV adjustment per patient size (includes targeted exams where dose is matched to clinical indication); or iterative reconstruction. Contrast material: OMNI 350; Contrast volume: 95 ml; Contrast route: INTRAVENOUS (IV); Other protocol: This patient has received [address] and 0 known cardiac nuclear medicine studies in the 12 months prior to the current study. COMPARISON: CR XR chest 1V portable [id number] 06/27/2021 11:29 AM RADIATION DOSE METRICS: Total DLP (mGy-cm): 540.51 FINDINGS: Lungs: Emphysematous changes. Pleural spaces: Unremarkable. No pneumothorax. No pleural effusion. Heart: Unremarkable. No cardiomegaly. No pericardial effusion. Coronary arteries: Coronary artery atherosclerotic calcifications. Lymph nodes: Several prominent subcentimeter short axis nonspecific mediastinal lymph nodes. Several prominent upper abdominal short axis lymph nodes, nonspecific. Vasculature: Unremarkable. No aortic aneurysm. Liver: Hepatic steatosis. Bones/joints: Unremarkable. No acute fracture. Soft tissues: Unremarkable. CT/CT chest w con* [id number] IMPRESSION: 1. Negative for pulmonary nodule or airspace opacification. 2. Coronary artery atherosclerotic calcifications. 3. Hepatic steatosis. 4. Several prominent subcentimeter short axis nonspecific mediastinal lymph nodes. 5. Emphysematous changes. 6. Several prominent upper abdominal short axis lymph nodes, nonspecific. COMMENTS: In the absence of a history or active diagnosis of lung cancer, it is recommended that this patient with emphysema be evaluated for enrollment in a low dose CT lung cancer screening program.
[2022-08-01] MEDS: iohexol 350 mg/mL 500 mL Btl (per mL) IV (07:46)
[2022-08-01 07:56] LABS: Blood Urea Nitrogen 35 mg/dL (8-23)
== END 2022-08-01 07:04 | disposition home or self-care (01) ==
LOC: RAD 07:04
PROVIDERS: PCP Family Medicine; Visit Provider Family Medicine
DX: R91.1 Solitary pulmonary nodule (principal)
CPT/HCPCS: 71260; 82565; 84520; Q9967

== ENCOUNTER → 2022-08-19 09:43 | Outpatient (BNVA) | payer OTHER, SELFPAY | PROVIDERS: PCP Family Medicine; Visit Provider Internal Medicine Cardiovascular Disease | DX: I25.10 Atherosclerotic heart disease of native coronary artery without angina pectoris (principal); E11.65 Type 2 diabetes mellitus with hyperglycemia; I10 Essential (primary) hypertension; E78.5 Hyperlipidemia, unspecified; Z87.891 Personal history of nicotine dependence; Z79.84 Long term (current) use of oral hypoglycemic drugs | CPT/HCPCS: 99214 ==

== ENCOUNTER → 2022-09-09 08:07 | Outpatient (BNVA) | payer OTHER, SELFPAY | PROVIDERS: PCP Family Medicine; Visit Provider Podiatrist Foot & Ankle Surgery | DX: E11.8 Type 2 diabetes mellitus with unspecified complications (principal); L84 Corns and callosities; M20.41 Other hammer toe(s) (acquired), right foot; M20.42 Other hammer toe(s) (acquired), left foot; E11.21 Type 2 diabetes mellitus with diabetic nephropathy | CPT/HCPCS: 99214 ==

== ENCOUNTER 2022-09-18 14:18 | Emergency (ER) | payer OTHER, SELFPAY ==
[2022-09-18 14:44] VITALS: BP 146/43; PULSE 75; RESP 16; TEMP 36.9; O2SAT 97; BMI 28.7
--- NOTE | 2022-09-18 14:55 | W.ED.WOUNDLC ---
HPI - Wound/Laceration General: Chief Complaint: Wound/Laceration Stated Complaint: Laceration on Right Leg Time Seen by Provider: 09/18/22 14:51 History of Present Illness: Patient is a 76-year-old male comes to the ED with laceration on right lower leg. Injury occurred just prior to arrival. 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 He accidentally sliced right lateral anterior side of lower leg. Patient immediately applied pressure bandage with some rags and came to the ED for evaluation. Patient is up-to-date on his tetanus. Associated symptoms: Denies chills, fever(s), nausea or vomiting Review of Systems Const: Denies: fever(s), chills or fatigue Eyes: Denies: change in vision or eye discomfort ENMT: Denies: throat pain, odynophagia, nasal discharge or nasal congestion Card: Denies: chest pain, palpitations, edema, swelling of feet/ankles, dyspnea on exertion or orthopnea Resp: Denies: dyspnea, productive cough or non-productive cough GI: Denies: abdominal pain, nausea, vomiting, diarrhea, constipation or hematochezia : Denies: flank pain, difficulty urinating, dysuria or hematuria Musc: Denies: neck pain, back pain or extremity swelling Skin/Breast: Reports: new lesions (Laceration to right lower leg); Denies: rash Neuro: Denies: headache(s), numbness in extremities or weakness in extremities [facility] ED PFSH: Medical History Atherosclerotic heart disease of [place] coronary artery without angina pectoris Atypical chest pain Benign essential HTN Dyslipidemia History of coronary angiogram 2017 Hypertension Parapelvic renal cyst Primary osteoarthritis, left shoulder SOB (shortness of breath) Type 2 diabetes mellitus Urolithiasis Surgical History History of back surgery History of hernia repair History of shoulder surgery Family History Father CAD (coronary artery disease) Mother , No history of heart disease, diabetes or stroke Dementia Sister Cancer Denies family history of Diabetes Clotting disorder Chronic kidney disease (CKD) Suicide Anesthesia complication Bleeding disorder Lung disease Stroke Social History Smoking and tobacco status: former smoker Alcohol intake: never Household members: spouse Marital status: Current occupational status: retired Physical Exam Const: COMMON NORMALS: patient oriented x3 HENMT: COMMON NORMALS: normocephalic HEAD & SCALP: normocephalic MOUTH: Normal oral and palatal mucosa present THROAT: posterior oropharynx normal and uvula midline Neck/C-Spine: COMMON NORMALS: supple GENERAL: Yes normal visual inspection Resp: COMMON NORMALS: normal respiratory effort, No retractions, No use of accessory muscles and clear to auscultation bilaterally AUSCULTATION: clear to auscultation bilaterally Cardio: COMMON NORMALS: regular rate, regular rhythm, S1 normal heart sound present, S2 normal heart sound present, No gallops present (Cardio), No clicks present (Cardio), No murmurs present (Cardio) and Peripheral pulses 2+ throughout RATE: regular rate RHYTHM: regular rhythm HEART SOUNDS: S1 normal heart sound present and S2 normal heart sound present PERIPHERAL PULSES: Peripheral pulses 2+ throughout GI: COMMON NORMALS: Normal to inspection, nondistended, normoactive bowel sounds present, Soft to palpation, non-tender and no masses PALPATION: Yes Soft to palpation : COMMON NORMALS: Yes no CVA tenderness BLADDER/KIDNEY EXAM: Yes no CVA tenderness Back/Pelvis: COMMON NORMALS: no CVA tenderness Extremity: NARRATIVE EXTREMITY EXAM: Right leg?lateral anterior aspect of the lower leg-2 cm superficial linear laceration. No contaminants and wound appears clean. No active bleeding. No erythema, warmth or puslike drainage noted. Neuro: COMMON NORMALS: patient oriented x3 GAIT: Yes Normal gait present Skin: GENERAL SKIN EXAM: dry skin Procedures Laceration Laceration 1: Site: lower extremity (Right lower leg) Side (If applicable): right Size (cm): 2 Description: linear and clean Depth: simple, single layer Local Anesthetic: lidocaine 1% and with epi Amount of anesthesia used (mL): 5 Pre-repair: irrigated extensively (With normal saline) Skin layer closed with: nylon Size (cm): 4-0 Number of sutures: 7 Technique: simple, interrupted Course Vital Signs: Vital signs: Vital Signs Temperature 98.5 F 09/18/22 14:44 Pulse Rate 75 09/18/22 14:44 Respiratory Rate 16 09/18/22 14:44 Blood Pressure 146/43 09/18/22 14:44 Pulse Oximetry 97 09/18/22 14:44 Oxygen Delivery Me thod 09/18/22 14:44 MDM - Wound/Laceration Medical Decision Making Patient is a 76-year-old male comes to the ED with laceration on right lower leg. Injury occurred just prior to arrival. 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 He accidentally sliced right lateral anterior side of lower leg. Patient immediately applied pressure bandage with some rags and came to the ED for evaluation. Patient is up-to-date on his tetanus. Vital stable. Right leg?lateral anterior aspect of the lower leg-2 cm superficial linear laceration. No contaminants and wound appears clean. No active bleeding. No erythema, warmth or puslike drainage noted. Wound was irrigated extensively with normal saline and iodine swab. Lidocaine 1% with epi was used as local and 7 sutures were placed to close laceration site. Patient was stable for discharge home and diagnosed with a laceration of right lower leg. He was sent home with a prophylactic prescription of Keflex. Return ED precautions given. Follow-up with PCP to have sutures removed in the next 7 to 10 days. Patient understood and agreed with plan. Discharge Plan Discharge Patient Disposition: Home Clinical Impression: Laceration of right lower leg Qualifiers: Encounter type: initial encounter Qualified Code(s): S81.811A - Laceration without foreign body, right lower leg, initial encounter Condition: Stable Prescriptions: New cephalexin 500 mg capsule 500 mg PO Q6H 4 Days Qty: 16 0RF No Action pantoprazole 40 mg tablet,delayed release (DR/EC) 40 mg PO QAM finasteride 5 mg tablet 5 mg PO QAM empagliflozin 25 mg tablet 25 mg PO QAM nifedipine 30 mg tablet extended release 30 mg PO QAM isosorbide mononitrate 120 mg tablet extended release 24 hr 120 mg PO QAM atorvastatin 40 mg tablet 40 mg PO BEDTIME valsartan 160 mg tablet 80 mg PO BEDTIME gabapentin 300 mg capsule 300 mg PO BID lidocaine [AsperFlex (lidocaine)] 4 % adhesive patch,medicated 1 patch topical DAILY PRN metoprolol tartrate 50 mg tablet 50 mg PO BID Qty: 180 3RF tamsulosin [Flomax] 0.4 mg capsule 0.4 mg PO BID Qty: 180 3RF nitroglycerin [Nitrostat] 0.4 mg Tablet, Sublingual 0.4 mg SUBLINGUAL Q5M PRN (Reason: Chest Pain) aspirin 81 mg Tablet,Delayed Release (Dr/Ec) 81 mg PO QAM fluticasone propionate 50 mcg/actuation [place],Suspension 1 spray INTRANASAL DAILY PRN (Reason: Allergy Symptoms) Vitamin D3 25 mcg (1,000 unit) Tablet 3,000 unit PO QAM calcium carbonate 200 mg calcium (500 mg) Tablet,Chewable 1,000 mg PO Q4H PRN (Reason: DYSPEPSI) Qty: 30 0RF Discharge Orders: Discharge ED (Routine); Ordered 09/18/22 Ordered By: Edson Trejo Referrals: Aziza Marsh MD [Primary Care Provider] - Discharge Diet: Regular Discharge Activity: Increase activity as tolerated Patient Instructions: Laceration (DC) Activity Restrictions/Additional Instructions: Take full course of antibiotics as prescribed. Keep laceration site clean and dry daily. Clean daily with soap and water and cover with bandage. Watch for signs of infection such as redness, warmth, increased tenderness and puslike drainage. If you see the signs of infection return to the ED, urgent care or PCP for reevaluation. call your PCP to schedule a follow-up appointment for reevaluation and suture removal in about 7-10 days. Continue taking all home meds. Follow discharge plans as discussed. You can return to the ED if symptoms worsen. Coding Level of Care Code ED Research Assistant Member for Rafael Weinstein
== END 2022-09-18 15:43 | disposition home or self-care (01) ==
PROVIDERS: Emergency Provider Physician Assistant; PCP Family Medicine
DX: S81.811A Laceration without foreign body, right lower leg, initial encounter (principal); Z79.82 Long term (current) use of aspirin; I25.10 Atherosclerotic heart disease of native coronary artery without angina pectoris; I10 Essential (primary) hypertension; E78.5 Hyperlipidemia, unspecified; E11.9 Type 2 diabetes mellitus without complications; Z87.891 Personal history of nicotine dependence; W26.0XXA Contact with knife, initial encounter
CPT/HCPCS: 12001; 99283

== ENCOUNTER → 2022-12-23 07:44 | Outpatient (BNVA) | payer OTHER, SELFPAY | PROVIDERS: PCP Family Medicine; Visit Provider Podiatrist Foot & Ankle Surgery | DX: E11.8 Type 2 diabetes mellitus with unspecified complications (principal); M20.41 Other hammer toe(s) (acquired), right foot; M20.42 Other hammer toe(s) (acquired), left foot; L84 Corns and callosities; E11.21 Type 2 diabetes mellitus with diabetic nephropathy | CPT/HCPCS: 99214 ==

== ENCOUNTER → 2022-12-25 12:21 | Outpatient (BNVA) | payer OTHER, SELFPAY | PROVIDERS: PCP Family Medicine; Visit Provider Internal Medicine Cardiovascular Disease | DX: R07.9 Chest pain, unspecified (principal); R55 Syncope and collapse; I25.10 Atherosclerotic heart disease of native coronary artery without angina pectoris; R00.1 Bradycardia, unspecified; E11.65 Type 2 diabetes mellitus with hyperglycemia; I10 Essential (primary) hypertension; E78.5 Hyperlipidemia, unspecified; Z87.891 Personal history of nicotine dependence | CPT/HCPCS: 93005; 99214 ==

== ENCOUNTER 2023-03-03 06:47 | Outpatient (RCR) | payer OTHER, SELFPAY | END 2023-03-28 23:59 | disposition home or self-care (01) | LOC: SPT 06:47 | PROVIDERS: Visit Provider Family Medicine | DX: R26.9 Unspecified abnormalities of gait and mobility (principal) | CPT/HCPCS: 97110; 97161 ==

== ENCOUNTER 2023-03-05 06:11 | Outpatient (CLI) | payer OTHER, SELFPAY ==
--- NOTE | 2023-03-05 06:26 | CT_ITS ---
WS: [id number] CT CHEST TECHNIQUE: Contrast enhanced CT of the chest with coronal and sagittal reformatted images. CLINICAL INFORMATION: FOLLOW UP FOR LEFT LUNG PLEURAL NODULE COMPARISON: CT 08/01/2022 DLP: 537.[address] scans at [facility] use at least one of these dose optimization techniques: automated e xposure control; mA and/or kV adjustment per patient size (includes targeted exams where dose is matc hed to clinical indication); or iterative reconstruction. FINDINGS: Mild chronic emphysematous changes. Tiny noncalcified nodule RIGHT middle lobe. Slight biba silar atelectasis. No other suspicious pulmonary parenchymal opacities. Previously described LEFT low er lobe 8 mm pleural nodule not visualized today. Diffuse fatty filtration of the liver. Tiny esophageal hernia. No axillary lymphadenopathy. Hypertro phic changes thoracic spine. Normal caliber thoracic aorta. Proximal main pulmonary arteries are norm al. No mediastinal or hilar lymphadenopathy. No axillary lymphadenopathy. Adrenal glands are normal. Partially visualized peripelvic renal cysts. IMPRESSION: 1. Tiny noncalcified nodule RIGHT middle lobe subpleural in location. 2. No other suspicious pulmonary opacities. 3. Mild chronic emphysematous changes.
[2023-03-05] MEDS: iohexol 350 mg/mL 500 mL Btl (per mL) IV (07:09)
== END 2023-03-05 06:12 | disposition home or self-care (01) ==
LOC: RAD 06:12
PROVIDERS: PCP Family Medicine; Visit Provider Family Medicine
DX: R91.1 Solitary pulmonary nodule (principal); Q61.02 Congenital multiple renal cysts
CPT/HCPCS: 71260; Q9967

== ENCOUNTER → 2023-03-16 09:51 | Outpatient (BNVA) | payer OTHER, SELFPAY | PROVIDERS: PCP Family Medicine; Visit Provider Internal Medicine Cardiovascular Disease | DX: I25.10 Atherosclerotic heart disease of native coronary artery without angina pectoris (principal); I10 Essential (primary) hypertension; E78.5 Hyperlipidemia, unspecified; I49.8 Other specified cardiac arrhythmias; Z87.891 Personal history of nicotine dependence | CPT/HCPCS: 99214 ==

== ENCOUNTER 2023-03-29 06:00 | Outpatient (RCR) | payer OTHER, SELFPAY | END 2023-04-27 23:59 | disposition home or self-care (01) | LOC: SPT 06:00 | PROVIDERS: PCP Family Medicine; Visit Provider Family Medicine | DX: R26.89 Other abnormalities of gait and mobility (principal) | CPT/HCPCS: 97110 ==

== ENCOUNTER → 2023-06-16 07:45 | Outpatient (BNVA) | payer OTHER, SELFPAY | PROVIDERS: PCP Family Medicine; Visit Provider Podiatrist Foot & Ankle Surgery | DX: M20.41 Other hammer toe(s) (acquired), right foot (principal); M20.42 Other hammer toe(s) (acquired), left foot; E11.21 Type 2 diabetes mellitus with diabetic nephropathy; L60.3 Nail dystrophy | CPT/HCPCS: 11721 ==

== ENCOUNTER → 2023-10-06 09:57 | Outpatient (BNVA) | payer OTHER, SELFPAY | PROVIDERS: PCP Family Medicine; Visit Provider Nurse Practitioner Family | DX: I25.10 Atherosclerotic heart disease of native coronary artery without angina pectoris (principal); I10 Essential (primary) hypertension; Z87.891 Personal history of nicotine dependence | CPT/HCPCS: 99214 ==

== ENCOUNTER 2023-11-18 08:00 | Outpatient (CLI) | payer OTHER, SELFPAY ==
--- NOTE | 2023-11-18 08:08 | CT_ITS ---
WS: [id number] CT ABDOMEN AND PELVIS NONCONTRAST HISTORY: HYDRONEPHROSIS/RENAL CYST/NEPHROLITHIASIS TECHNIQUE: Imaging performed through the abdomen and pelvis. Coronal and sagittal reformats are submi tted. All CT scans at [facility] use at least one of these dose optimization techniques: auto mated exposure control; mA and/or kV adjustment per patient size (includes targeted exams where dose is matched to clinical indication); or iterative reconstruction. DLP: 569.38 mGy.cm COMPARISON: 04/09/2022, 02/26/2017 Lower thorax: Lung bases are clear. Previously described 8 mm nodule along the medial LEFT lower lobe has resolved. Visualized heart is normal. No hiatal hernia. Liver: Normal size liver. No mass or bile duct dilatation. Gallbladder: Normal gallbladder. No pericholecystic fluid or cholelithiasis. No gallbladder wall thic [place]. Pancreas: Normal size and attenuation. Normal pancreatic duct. No pancreatitis or mass. Spleen: Normal. Adrenal glands: Normal. No mass. Right kidney: Mild perinephric stranding. Very minimal prominence of the central renal pelvis. There are small parapelvic cysts but also very slight calyceal dilatation which is similar to the prior soy dy. The ureter is not dilated. No calcifications. Left kidney: Mild perinephric stranding. Very mild fullness of the renal pelvis similar to the prior study from 2017. No ureteral dilatation. Aorta: Mild atherosclerosis abdominal aorta with no aneurysm. No free fluid, intraperitoneal air or significant lymphadenopathy. GI tract: Nondistended stomach. No small bowel obstruction. No colon obstruction. Normal appendix. Nu merous diverticula in the distal and sigmoid colon without acute diverticulitis. Abdominal wall: Very tiny umbilical hernia. Pelvis: No free fluid in the pelvis. Urinary bladder is normal. Osseous structures: Degenerative changes. No destructive bone lesions. CT/CT kidney stone [id number] IMPRESSION: 1. Mild persistent perinephric stranding and fullness in the renal pelves. 2. Part of the fullness in the renal pelvis related to parapelvic cysts. There does appear to very slight calyceal dilatation but not progressing. There is n o ureteral obstruction. 3. The fullness in the RIGHT renal pelvis similar to 04/09/2022 but more promi nent as compared to 2017. LEFT renal pelvis unchanged since 2017. 4. No adenopathy or free fluid. 5. Moderate diverticular disease in the distal colon. No acute diverticulitis.
== END 2023-11-18 08:01 | disposition home or self-care (01) ==
LOC: RAD 08:01
PROVIDERS: PCP Family Medicine; Visit Provider Urology
DX: N13.30 Unspecified hydronephrosis (principal); N28.1 Cyst of kidney, acquired; N28.89 Other specified disorders of kidney and ureter; K57.30 Diverticulosis of large intestine without perforation or abscess without bleeding; M89.8X9 Other specified disorders of bone, unspecified site
CPT/HCPCS: 74176

== ENCOUNTER → 2023-12-22 06:46 | Outpatient (BNVA) | payer OTHER, SELFPAY | PROVIDERS: PCP Family Medicine; Visit Provider Podiatrist Foot & Ankle Surgery | DX: L60.3 Nail dystrophy (principal); M20.41 Other hammer toe(s) (acquired), right foot; M20.42 Other hammer toe(s) (acquired), left foot; E11.21 Type 2 diabetes mellitus with diabetic nephropathy | CPT/HCPCS: 99213 ==

== ENCOUNTER → 2024-03-18 09:49 | Outpatient (BNVA) | payer OTHER, SELFPAY | PROVIDERS: PCP Family Medicine; Visit Provider Student in an Organized Health Care Education/Training Program | DX: Z12.11 Encounter for screening for malignant neoplasm of colon (principal) | CPT/HCPCS: 99204 ==

== ENCOUNTER 2024-05-09 11:19 | Day surgery (SDC) | payer OTHER, SELFPAY ==
[2024-05-09 11:54] VITALS: BP 145/62; PULSE 61; RESP 18; TEMP 36.5; O2SAT 96; BMI 30.5
[2024-05-09 11:55] LABS: Glucose Point of Care 133 mg/dL (70-110)
[2024-05-09] MEDS: sodium chloride 0.9% 1,000 ML 30 ML IV (12:00)
--- NOTE | 2024-05-09 12:37 | ANES.PREANE2 ---
Pre-Anesthetic Assessment Height/Weight: Height 1.75 m Weight 93.894 kg Temp Pulse Resp BP Pulse Ox O2 Del Method 97.7 F 61 18 145/62 96 Room Air 05/09/24 11:54 05/09/24 11:54 05/09/24 11:54 05/09/24 11:54 05/09/24 11:54 05/09/24 11:54 Operation Date: 05/09/24 12:45 Proposed Procedures p Colonoscopy 70447, G0105, Z12.11(Not Applicable) - Ibrahima Amaro MD Familial anesthetic complications: none Was Beta Sarika taken within 24 hours: N/A Was Clonidine taken within 24 hours: N/A Last intake: Intake Last Liquid Date 05/08/24 Last Liquid Time 20:00 Last Solid Date 05/08/24 Last Solid Time 06:00 Social No alcohol and No tobacco Exam alert and oriented x 3 Airway Submandibular: within normal limits Cervical ROM: within normal limits Mallampati: Class II Dentition: partials History/ROS No significant history except as noted Pulmonary None reported CV/HEM Coronary Artery Disease, Hypertension and Palpitations cysts on kidneys- montioring Hepatic None reported GI None reported Metabolic Diabetes Mellitus and Hyperlipidemia [facility] Lower Back Pain and Osteoarthritis/DJD Neuropsych None reported Anesthetic Plan ASA status: 3 Anesthesia: Anesthesia Evaluation and MAC Medications/Allergies Home Medications Medication Instructions Recorded Confirmed Last Taken Type atorvastatin 40 mg tablet 40 mg PO BEDTIME 12/04/19 05/04/24 05/03/24 History empagliflozin 25 mg tablet 25 mg PO QAM 12/04/19 05/04/24 05/04/24 History finasteride 5 mg tablet 5 mg PO QAM 12/04/19 05/04/24 05/04/24 History isosorbide mononitrate 120 mg 120 mg PO QPM 12/04/19 05/04/24 05/03/24 History tablet,extended release 24 hr nifedipine 30 mg tablet,extended 30 mg PO QAM 12/04/19 05/04/24 05/04/24 History release pantoprazole 40 mg tablet,delayed 40 mg PO QAM 12/04/19 05/04/24 05/04/24 History release nitroglycerin 0.4 mg sublingual 0.4 mg sublingual Q5M PRN Chest 03/21/20 05/04/24 06/27/21 History tablet (Nitrostat) Pain gabapentin 300 mg capsule 300 mg PO BID 10/04/20 05/04/24 05/04/24 History valsartan 160 mg tablet 80 mg PO BEDTIME 10/04/20 05/04/24 05/03/24 History aspirin 81 mg tablet,delayed 81 mg PO QAM 06/27/21 05/04/24 05/04/24 History release cholecalciferol (vitamin D3) 25 3,000 unit PO QAM 06/27/21 05/04/24 05/04/24 History mcg (1,000 unit) tablet (Vitamin D3) fluticasone propionate 50 1 spray intranasal DAILY PRN 06/27/21 05/04/24 05/03/24 History mcg/actuation nasal Allergy Symptoms spray,suspension lidocaine 4 % topical patch 1 patch topical DAILY PRN Pain 03/17/22 05/04/24 Unknown History (AsperFlex (lidocaine)) tamsulosin 0.4 mg capsule (Flomax) 0.4 mg PO BID #180 caps 07/15/22 05/04/24 05/04/24 Rx [place] Toe Spacers #1 ea 12/23/22 03/18/24 Unknown Rx metoprolol tartrate 50 mg tablet 25 mg PO BID 12/25/22 05/04/24 05/04/24 History magnesium oxide 84.5 mg PO BID #180 caps 03/16/23 05/04/24 05/04/24 Rx Allergies Allergy/AdvReac Type Severity Reaction Status Date / Time codeine Allergy Severe ALGY-Anaphy Verified 05/04/24 09:04 laxis ropinirole Allergy Intermediate ADR-Confusi Verified 05/04/24 09:04 on sulfamethoxazole Allergy Mild sweating Verified 05/04/24 09:04 [From Bactrim] trimethoprim [From Bactrim] Allergy Mild sweating Verified 05/04/24 09:04 morphine Allergy ADR/ALGY-Pa Verified 05/04/24 09:04 lpitations propoxyphene [From Darvon] Allergy ALGY-Difficulty Verified 05/04/24 09:04 Breathing Current Medications Generic Name Dose Route Start Last Admin Trade Name Freq PRN Reason Stop Dose Admin Sodium Chloride 1,000 mls @ 30 mls/hr 05/09/24 11:30 05/09/24 12:00 Sodium Chloride 0.9% IV 05/10/24 11:29 30 mls/hr .Q24H VIV Administration PFSH Anesthesia Medical History Urolithiasis Parapelvic renal cyst SOB (shortness of breath) History of coronary angiogram 2016 Dyslipidemia Benign essential HTN Atypical chest pain 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, left shoulder Hypertension Type 2 diabetes mellitus Surgical History History of shoulder surgery History of back surgery History of hernia repair Family History Father CAD (coronary artery disease) Mother , No history of heart disease, diabetes or stroke Dementia Sister Cancer Denies family history of Diabetes Clotting disorder Chronic kidney disease (CKD) Suicide Anesthesia complication Bleeding disorder Lung disease Stroke Social History Smoking and tobacco/nicotine status: former use of tobacco/nicotine Alcohol intake: never Substance/Drug Use: never Household members: spouse Marital status: Current occupational status: retired Data Anesthesia Cardiac Studies: Echocardiogram 06/27/21 Sestamibi Stress Test (Cardiology) 03/21/20 Cardiac Event Monitor 12/25/22
--- NOTE | 2024-05-09 12:50 | P.HP_ITS ---
Same Day Surgery H&P Indication for Procedure/HPI DATE OF PROCEDURE: May 09, 2024 CHIEF COMPLAINT/INDICATIONFOR SURGICAL PROCEDURE: screening colonoscopy PREOP DIAGNOSIS: screening colonoscopy PLANNED PROCEDURE: Operation Date: 05/09/24 12:45 Proposed Procedures p Colonoscopy 08986, G0105, Z12.11(Not Applicable) - Ibrahima Amaro MD Medications/Allergies* Home Medications Medication Instructions Recorded Confirmed Type atorvastatin 40 mg tablet 40 mg PO BEDTIME 12/04/19 05/04/24 History empagliflozin 25 mg tablet 25 mg PO QAM 12/04/19 05/04/24 History finasteride 5 mg tablet 5 mg PO QAM 12/04/19 05/04/24 History isosorbide mononitrate 120 mg 120 mg PO QPM 12/04/19 05/04/24 History tablet,extended release 24 hr nifedipine 30 mg tablet,extended 30 mg PO QAM 12/04/19 05/04/24 History release pantoprazole 40 mg tablet,delayed 40 mg PO QAM 12/04/19 05/04/24 History release nitroglycerin 0.4 mg sublingual 0.4 mg sublingual Q5M PRN Chest 03/21/20 05/04/24 History tablet (Nitrostat) Pain gabapentin 300 mg capsule 300 mg PO BID 10/04/20 05/04/24 History valsartan 160 mg tablet 80 mg PO BEDTIME 10/04/20 05/04/24 History aspirin 81 mg tablet,delayed 81 mg PO QAM 06/27/21 05/04/24 History release cholecalciferol (vitamin D3) 25 3,000 unit PO QAM 06/27/21 05/04/24 History mcg (1,000 unit) tablet (Vitamin D3) fluticasone propionate 50 1 spray intranasal DAILY PRN 06/27/21 05/04/24 History mcg/actuation nasal Allergy Symptoms spray,suspension lidocaine 4 % topical patch 1 patch topical DAILY PRN Pain 03/17/22 05/04/24 History (AsperFlex (lidocaine)) metoprolol tartrate 50 mg tablet 25 mg PO BID 12/25/22 05/04/24 History Allergies/Adverse Reactions Allergy/AdvReac Type Severity Reaction Status Date / Time codeine Allergy Severe ALGY-Anaphy Verified 05/04/24 09:04 laxis ropinirole Allergy Intermediate ADR-Confusi Verified 05/04/24 09:04 on sulfamethoxazole Allergy Mild sweating Verified 05/04/24 09:04 [From Bactrim] trimethoprim [From Bactrim] Allergy Mild sweating Verified 05/04/24 09:04 morphine Allergy ADR/ALGY-Pa Verified 05/04/24 09:04 lpitations propoxyphene [From Darvon] Allergy ALGY-Difficulty Verified 05/04/24 09:04 Breathing Current Medications: Generic Name Dose Route Start Last Admin Trade Name Susy PRN Reason Stop Dose Admin Sodium Chloride 1,000 mls @ 30 mls/hr 05/09/24 11:30 05/09/24 12:00 Sodium Chloride 0.9% IV 05/10/24 11:29 30 mls/hr .Q24H VIV Administration Pertinent History/Comorbid Conditions* Medical History (Updated 10/06/23 @ 10:47 by KATE Tony) Urolithiasis Parapelvic renal cyst SOB (shortness of breath) History of coronary angiogram 2016 Dyslipidemia Benign essential HTN Atypical chest pain 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, left shoulder Hypertension Type 2 diabetes mellitus Surgical History (Updated 03/21/20 @ 10:55 by Tamara Wilson DO) History of shoulder surgery History of back surgery History of hernia repair Family History (Updated 10/04/20 @ 11:00 by Ernestine Russell RN) Mother, No history of heart disease, diabetes or stroke CAD (coronary artery disease) Father Dementia Mother Cancer Sister Denies family history of Diabetes Clotting disorder Chronic kidney disease (CKD) Suicide Anesthesia complication Bleeding disorder Lung disease Stroke Social History Smoking and tobacco/nicotine status: former use of tobacco/nicotine Alcohol intake: never Substance/Drug Use: never Household members: spouse Marital status: Current occupational status: retired Pertinent Exam Findings alert, oriented x 3, clear to auscultation bilaterally, regular rate & rhythm and procedure specific exam findings Abdomen soft, nt, nd Recommendations Surgery/Procedure today Coding Level of Care Code Acute Code for Chg Fwd
[2024-05-09 13:07] VITALS: BP 130/69; PULSE 62; RESP 18; TEMP 36.1; O2SAT 91
[2024-05-09 13:12] VITALS: BP 128/67; PULSE 55; RESP 18; O2SAT 90
[2024-05-09 13:22] VITALS: BP 127/71; PULSE 53; RESP 18; O2SAT 91
--- NOTE | 2024-05-09 13:40 | ANE.PACU2 ---
Inpatient post-anesthesia follow up: Airway intact: Yes Vital signs: Temperature 97.0 F Pulse Rate 53 Respiratory Rate 18 Blood Pressure 127/71 Pulse Oximetry 91 Oxygen Delivery Me thod Room Air Oxygen Flow Rate Fraction of Inspir ed Oxygen Hydration adequate: Yes Nausea and vomiting: No Pain level: 1
== END 2024-05-09 13:40 | disposition home or self-care (01) ==
PROVIDERS: PCP Family Medicine; Visit Provider Student in an Organized Health Care Education/Training Program
PROC: 0DJD8ZZ Inspection of Lower Intestinal Tract, Via Natural or Artificial Opening Endoscopic (ICD-10-PCS; CPT 45378; principal; 2024-05-09 12:45)
DX: Z12.11 Encounter for screening for malignant neoplasm of colon (principal); K57.30 Diverticulosis of large intestine without perforation or abscess without bleeding; E78.5 Hyperlipidemia, unspecified; I10 Essential (primary) hypertension; E11.9 Type 2 diabetes mellitus without complications; Z87.891 Personal history of nicotine dependence; I25.10 Atherosclerotic heart disease of native coronary artery without angina pectoris
CPT/HCPCS: 36416; 45378; 82962; J7030

== ENCOUNTER → 2024-05-31 06:51 | Outpatient (BNVA) | payer OTHER, SELFPAY | PROVIDERS: PCP Family Medicine; Visit Provider Podiatrist Foot & Ankle Surgery | DX: M20.41 Other hammer toe(s) (acquired), right foot (principal); M20.42 Other hammer toe(s) (acquired), left foot; E11.21 Type 2 diabetes mellitus with diabetic nephropathy | CPT/HCPCS: 99213 ==

== ENCOUNTER 2024-06-03 08:39 | Outpatient (CLI) | payer OTHER, SELFPAY ==
[2024-06-03 10:06] LABS: Anion Gap 13.3 (5-19); Blood Urea Nitrogen 21 mg/dL (8-23); Calcium 9.7 mg/dL (8.5-10.5); Carbon Dioxide 27 mmol/L (22-29); Chloride 104 mmol/L (98-107); Glucose 147 mg/dL (65-115); Osmolality Calculated 296 mOsm/kg (285-295); Potassium 4.3 mmol/L (3.5-5.1); Sodium 140 mmol/L (136-145)
== END 2024-06-03 08:40 | disposition home or self-care (01) ==
LOC: LAB 08:44
PROVIDERS: PCP Family Medicine; Visit Provider Urology
DX: N20.0 Calculus of kidney (principal)
CPT/HCPCS: 36415; 80048

== ENCOUNTER 2024-11-07 06:02 | Outpatient (CLI) | payer OTHER, SELFPAY ==
--- NOTE | 2024-11-07 06:15 | US_ITS ---
WS: [id number] RENAL ULTRASOUND HISTORY: Hydronephrosis COMPARISON: 01/08/2022, CT 11/18/2023 TECHNIQUE: 2-D and color Doppler imaging of the kidney submitted. Right kidney: 11.9 cm x 6.0 cm x 6.0 cm. Cortex: 1.6 cm Normal size kidney. Similar as compared to the recent CT. Mild hydronephrosis of the central pelvis. Left kidney: 10.8 cm x 6.0 cm x 6.3 cm. Cortex: 2.9 cm Normal size kidney. Mild hydronephrosis, slightly greater than on the RIGHT. Aorta: Normal. Urinary Bladder: Normal distention. Minimal prostate encroachment upon the base of the bladder. US/US renal BI* [id number] IMPRESSION: 1. Very minimal bilateral hydronephrosis, LEFT slightly greater than RIGHT. Ce ntral renal prominence with mildly dilated calyces. Slow progression of mild hy dronephrosis over multiple prior years. Mild UP junction obstruction should be considered. 2. No renal atrophy.
--- NOTE | 2024-11-07 06:40 | XR_ITS ---
WS: [id number] Exam: XR KUB [id number] Date/Time of Exam: 11/07/2024 7:08 AM Reason For Exam: Kidney Stones No bowel obstruction or free air. Scattered gas in both large and small bowel loops suggesting mild ileus. No sign of organ enlargement. Degenerative change and spondylosis of the L-spine. XR/XR KUB [id number] IMPRESSION: 1. Mild ileus. No acute process noted at this time.
== END 2024-11-07 06:03 | disposition home or self-care (01) ==
PROVIDERS: PCP Family Medicine; Visit Provider Nurse Practitioner Family
DX: Z87.442 Personal history of urinary calculi (principal); N28.1 Cyst of kidney, acquired; N13.30 Unspecified hydronephrosis; R93.5 Abnormal findings on diagnostic imaging of other abdominal regions, including retroperitoneum; M47.896 Other spondylosis, lumbar region
CPT/HCPCS: 74018; 76770

== ENCOUNTER 2024-12-01 07:58 | Outpatient (CLI) | payer OTHER, SELFPAY ==
[2024-12-01 08:58] LABS: Basophils % 0.6 %; Eosinophils # 0.2 10^3/uL (0.0-0.8); Eosinophils % 3.8 %; Hematocrit 43.4 % (37-53); Lymphocytes # 1.4 10^3/uL (0.8-4.8); Lymphocytes % 28.6 %; Mean Corpuscular HGB Conc 34.3 g/dL (30-55); Mean Corpuscular Hemoglobin 33.3 pg (27-33); Mean Corpuscular Volume 96.9 fl (82-101); Mean Platelet Volume 9.9 fL (7.4-10.4); Monocytes # 0.5 10^3/uL (0.2-0.9); Monocytes % 10.5 %; Neutrophils # 2.78 10^3/uL (1.8-7.7); Neutrophils % 55.9 %; Nucleated Red Blood Cells % 0 %; Platelet Count 148 10^3/cmm (157-399); Red Blood Count 4.48 10^6/uL (3.85-5.65); Red Cell Distribution Width 12.8 % (12.1-15.1); White Blood Count 4.97 10^3/uL (3.29-11.43)
[2024-12-01 09:17] LABS: Albumin Level 4.4 g/dL (3.5-5.2); Anion Gap 16.4 (5-19); Blood Urea Nitrogen 17 mg/dL (8-23); Calcium 9.9 mg/dL (8.5-10.5); Carbon Dioxide 24 mmol/L (22-29); Chloride 104 mmol/L (98-107); Glucose 143 mg/dL (65-115); Phosphorus 3.2 mg/dL (2.5-4.5); Potassium 4.4 mmol/L (3.5-5.1); Sodium 140 mmol/L (136-145)
[2024-12-01 09:20] LABS: Calcium 9.6 mg/dL (8.5-10.5)
[2024-12-01 09:22] LABS: Creatinine Urine, Random 36 mg/dL (39-259); Microalbum Creatinine Ratio Ur 28 mg/dL (0-20); Microalbumin Random Urine 1 ug/dL (0-20)
[2024-12-01 09:24] LABS: Parathyroid Hormone 27.1 pg/mL (15-65)
== END 2024-12-01 07:59 | disposition home or self-care (01) ==
PROVIDERS: Absent Provider Urology; PCP Family Medicine; Visit Provider Internal Medicine Nephrology
DX: N18.31 Chronic kidney disease, stage 3a (principal)
CPT/HCPCS: 36415; 80069; 82044; 82310; 83970; 85025

== ENCOUNTER 2024-12-08 09:14 | Outpatient (CLI) | payer OTHER, SELFPAY ==
[2024-12-08 10:46] LABS: Prostate Specific Antigen Scr 0.12 ng/mL (0-4)
== END 2024-12-08 09:15 | disposition home or self-care (01) ==
PROVIDERS: PCP Family Medicine; Visit Provider Nurse Practitioner Family
DX: N40.1 Benign prostatic hyperplasia with lower urinary tract symptoms (principal)
CPT/HCPCS: 36415; G0103

== ENCOUNTER → 2024-12-20 07:42 | Outpatient (BNVA) | payer OTHER, SELFPAY | PROVIDERS: PCP Family Medicine; Visit Provider Podiatrist Foot & Ankle Surgery | DX: L60.8 Other nail disorders (principal); M20.41 Other hammer toe(s) (acquired), right foot; M20.42 Other hammer toe(s) (acquired), left foot; E11.21 Type 2 diabetes mellitus with diabetic nephropathy | CPT/HCPCS: 99213 ==

== ENCOUNTER → 2025-06-27 06:52 | Outpatient (BNVA) | payer OTHER, SELFPAY | PROVIDERS: PCP Family Medicine; Visit Provider Podiatrist Foot & Ankle Surgery | DX: L60.3 Nail dystrophy (principal); M20.41 Other hammer toe(s) (acquired), right foot; M20.42 Other hammer toe(s) (acquired), left foot; E11.21 Type 2 diabetes mellitus with diabetic nephropathy; E11.8 Type 2 diabetes mellitus with unspecified complications; L60.8 Other nail disorders | CPT/HCPCS: 99213 ==